=== PATIENT | male | born 1940 | race Caucasian/White ===

== ENCOUNTER → 2016-09-29 | Day surgery (SDC) | payer MEDICARE ==
[~2016-09-29] VITALS: Ht 172.7 cm; Wt 76.8 kg
[~2016-09-29] MED LIST: ACETAMINOPHEN 1000 MG/100 ML VIAL IV ONE; AMLO5TAB2 PO; ASPI81TA81 PO; CEPH-460 PO; CHLORHEXIDINE GLUCONATE 2 % 1 PACK (2 CLOTHS) TOPICAL PRN; CHRO200C PO; CINN500C12 PO; DO NOT ADM ANY ANTICOAGULANT DRUGS PRN; ENAL20TA PO; FAMOTIDINE 20 MG/2 ML VIAL ONE; INSULIN HUMAN REGULAR 1,000 UNITS/10 ML VIAL SQ PRN; LACTATED RINGER'S 1000 ML INJ 1,000 ML IV ONE; LACTATED RINGER'S 1000 ML IV PRN; METO25TA3 PO; METOPROLOL TARTRATE 25 MG TAB PO PRN; MIDAZOLAM HCL 2 MG/2 ML VIAL ONE; MULTTAB23 PO; OMEP20TA PO; ONDANSETRON HCL 4 MG/2 ML VIAL IV PUSH PRN; PERC5TAB12 PO; PHENYLEPH/NS 1000 MCG/10 ML SYR IV ONE; POVIDONE IODINE 5% (ANTISEPSIS KIT) 4 APPLICATIONS EACH NARE PRN; PROPOFOL 200 MG/20 ML AMP IV ONE; RESP: ALBUTEROL 2.5 MG/3 ML NEB (PRN) ONE; SODIUM CHLORID 0.9% 500 ML IV PRN; VENTAER INH; ceFAZolin 2 GM PREMIX 50 ML IV SCH; ePHEDrine/NS 25 MG/5 ML SYR IV ONE; fentaNYL CITRATE 250 MCG/5 ML AMP ONE; oxyCODONE/ACETAMINOPHEN 5 MG/325 MG TAB PO PRN
[2016-09-29 07:03] VITALS: BP 115/67; PULSE 65; RESP 20; TEMP 97.8; O2SAT 96
[2016-09-29 07:18] LABS: AUTOMATED NEUTROPHIL # 6.5 TH/MM3 (1.8-7.7); BASOPHIL # 0.1 TH/MM3 (0-0.2); BASOPHIL % 1.4 % (0.0-2.0); EOSINOPHIL # 0.4 TH/MM3 (0-0.4); EOSINOPHIL % 4.4 % (0.0-4.0); HEMATOCRIT 42.5 % (39.0-51.0); HEMO FLAGS DIFF FINAL; LYMPH % 19.2 % (9.0-44.0); LYMPHOCYTE # 1.8 TH/MM3 (1.0-4.8); MEAN CELL VOLUME 94.8 FL (80.0-100.0); MEAN CORPUSCULAR HEMOGLOBIN 32.6 PG (27.0-34.0); MEAN CORPUSCULAR HGB CONC 34.4 % (32.0-36.0); MONO % 6.4 % (0.0-8.0); NEUT % 68.6 % (16.0-70.0); PLATELET COUNT 210 TH/MM3 (150-450); RED BLOOD COUNT 4.49 MIL/MM3 (4.50-5.90); RED CELL DISTRIBUTION WIDTH 14.9 % (11.6-17.2); WHITE BLOOD COUNT 9.5 TH/MM3 (4.0-11.0)
--- NOTE | 2016-09-29 09:57 | PD.OP ---
Operative Report Date of Surgery: Sep 29, 2016 Preoperative Diagnosis: (1) Bladder mass Postoperative Diagnosis: (1) Bladder mass Procedure: Cystoscopy and transurethral resection of bladder mass measuring approximately 1 cm to the right trigone region. Anesthesia: General Surgeon: Bravo Rodriguez Merchandise Executive(s): None. Operation and Findings: Indication for procedure: Case of a pleasant 76-year-old gentleman with a history of bladder cancer status post transurethral resection of a lesion involving the right trigone region last year. The patient received mitomycin-C instillation at the time of transurethral resection. 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 Recent cystoscopy demonstrated a necrotic appearing small tumor mass involving the right trigone region measuring approximately 1 cm. Patient presents now to undergo transurethral resection of this small mass. Operative procedure in detail:. Patient was brought to the operating suite and placed supine on the cystoscopy table. He was then placed under general anesthesia. He was then repositioned in the dorsolithotomy position and prepped and draped in normal sterile fashion. After appropriate timeout was undertaken I proceeded with cystoscopic evaluation utilizing the rigid cystoscope with a 20 Algerian sheath and the 30 lens. The patient once again was noted to have a necrotic tumor mass involving the right trigone region just lateral to the right orifice measuring approximately 1 cm. The patient next underwent transurethral resection of this recurrent tumor mass. The tumor itself was pretty much devitalized. I did use the cup biopsy forceps and took the specimen of viable appearing tissue at the periphery of the mass lesion. Once the mass was resected the base was fulgurated with coagulation current. A 16 Algerian sensitivity Carrizales catheter was placed and connected to gravity drainage. Patient tolerated the procedure without complications and was transferred to PACU in satisfactory condition. Bravo Rodriguez MD Sep 29, 2016 09:57
[2016-09-29 11:30] VITALS: BP 133/65; PULSE 78; RESP 18; TEMP 97.4; O2SAT 92
--- NOTE | 2016-09-29 16:02 | EKG ---
Date Performed: 09/29/2016 Time Performed: 07:07:44 PTAGE: 76 years EK% ATRIAL PACING LEFT ANTERIOR FASCICULAR BLOCK RIGHT BUNDLE BRANCH BLOCK INFERIOR MYOCAR DIAL INFARCTION , OF INDETERMINATE AGE Atrial pacing is new from the prior tracing. ABNORMAL ECG PREVIOUS TRACING : 03/11/2005 15.20 DOCTOR: Guillermo Arias Interpretating Date/Time 09/29/2016 16:00:27
== END | disposition home or self-care (01) ==
LOC: HSDC 05:58
PROVIDERS: ATTEND Urology
DX: N32.89 Other specified disorders of bladder (principal); I10 Essential (primary) hypertension; E78.5 Hyperlipidemia, unspecified; E11.9 Type 2 diabetes mellitus without complications; K21.9 Gastro-esophageal reflux disease without esophagitis; I25.2 Old myocardial infarction; J44.9 Chronic obstructive pulmonary disease, unspecified; I25.10 Atherosclerotic heart disease of native coronary artery without angina pectoris; Z88.5 Allergy status to narcotic agent; Z88.2 Allergy status to sulfonamides; Z88.8 Allergy status to other drugs, medicaments and biological substances; Z79.82 Long term (current) use of aspirin; Z95.0 Presence of cardiac pacemaker; Z85.51 Personal history of malignant neoplasm of bladder; Z95.5 Presence of coronary angioplasty implant and graft
CPT/HCPCS: 52234; 85025; 88305; 93005; 94664; J0131; J0690; J2250; J2370; J3010; J7120; J7613; 88307

== ENCOUNTER 2016-11-15 16:37 | Inpatient (IN) | payer MEDICARE ==
[~2016-11-15] VITALS: Ht 172.7 cm; Wt 83.0 kg
[~2016-11-15 16:37] MED LIST changes: -ACETAMINOPHEN 1000 MG/100 ML VIAL IV ONE; -CEPH-460 PO; -CHLORHEXIDINE GLUCONATE 2 % 1 PACK (2 CLOTHS) TOPICAL PRN; -DO NOT ADM ANY ANTICOAGULANT DRUGS PRN; -FAMOTIDINE 20 MG/2 ML VIAL ONE; -INSULIN HUMAN REGULAR 1,000 UNITS/10 ML VIAL SQ PRN; -LACTATED RINGER'S 1000 ML INJ 1,000 ML IV ONE; -LACTATED RINGER'S 1000 ML IV PRN; -METOPROLOL TARTRATE 25 MG TAB PO PRN; -MIDAZOLAM HCL 2 MG/2 ML VIAL ONE; -ONDANSETRON HCL 4 MG/2 ML VIAL IV PUSH PRN; -PHENYLEPH/NS 1000 MCG/10 ML SYR IV ONE; -POVIDONE IODINE 5% (ANTISEPSIS KIT) 4 APPLICATIONS EACH NARE PRN; -PROPOFOL 200 MG/20 ML AMP IV ONE; -RESP: ALBUTEROL 2.5 MG/3 ML NEB (PRN) ONE; -SODIUM CHLORID 0.9% 500 ML IV PRN; -ceFAZolin 2 GM PREMIX 50 ML IV SCH; -ePHEDrine/NS 25 MG/5 ML SYR IV ONE; -fentaNYL CITRATE 250 MCG/5 ML AMP ONE; -oxyCODONE/ACETAMINOPHEN 5 MG/325 MG TAB PO PRN
--- NOTE | 2016-11-15 16:58 | PD ---
HPI Chief Complaint: fall Time Seen by Provider: 16:54 Travel History International Travel<30 days: No Contact w/Intl Traveler<30days: No History of Present Illness HPI 76-year-old male presents to the emergency department for evaluation after he tripped and fell. Patient arrived via EMS. He states that he tripped over the care of his was sitting in. He twisted his right foot and landed on his left hip. He complains of left groin and left lateral hip pain. He did hit his head, but denies LOC. He denies any neck pain or back pain. No chest pain or abdominal pain. No nausea, vomiting, diarrhea. He is on a baby aspirin daily, but is not on any other anticoagulants. He has no bleeding disorders. Patient denies pain other than his left hip and groin. PFSH Past Medical History Blood Disorders: No Cancer: Yes (BLADDER) Cardiovascular Problems: Yes (CARDIAC STENTS WITH PACEMAKER ([employer])) High Cholesterol: Yes Chemotherapy: No Diabetes: No Endocrine: No Genitourinary: Yes (BLADDER CA) Hepatitis: No Hiatal Hernia: No Immune Disorder: No Musculoskeletal: No Neurologic: Yes (ZHAO'S PALSY, RT SIDE AFFECTED) Psychiatric: No Reproductive: No Respiratory: Yes (COPD) Radiation Therapy: No Thyroid Disease: No Past Surgical History Abdominal Surgery: No AICD: No Body Medical Devices: CARDIAC STENTS Cardiac Surgery: Yes (CABG, PACEMAKER) Ear Surgery: No Endocrine Surgery: No Eye Surgery: Yes (DETACHED RETINA) Genitourinary Surgery: No Joint Replacement: No Oral Surgery: No Pacemaker: Yes Thoracic Surgery: No Social History Alcohol Use: No Tobacco Use: No Substance Use: No Allergies-Medications (Allergen,Severity, Reaction): Coded Allergies: Morphine (Verified Allergy, Severe, HALLUCINATION, 10/17/16) Uncoded Allergies: STEROIDS (Allergy, Severe, HEADACHES, NAUSEA, 09/29/16) Reported Meds & Prescriptions Reported Meds & Active Scripts Active Percocet (Oxycodone-Acetaminophen) 5-325 mg Tab 1-2 Tab PO Q6H PRN Reported Hm Cinnamon (Cinnamon) 500 Mg Cap 300 Mg PO DAILY Chromium Picolinate 200 Mcg Cap 200 Mg PO DAILY Amlodipine (Amlodipine Besylate) 5 Mg Tab 5 Mg PO DAILY Aspir-81 (Aspirin) 81 Mg Tabdr 81 Mg PO DAILY Ventolin Hfa 18 GM Inh (Albuterol Sulfate) 90 Mcg/Act Aer 2 Puff INH Q4-6H PRN Multi For Him 50+ (Multiple Vitamins W/ Minerals) 1 Tab Tab 0.5 Tab PO EVERY OTHER DAY Metoprolol Tartrate 25 Mg Tab 25 Mg PO DAILY Omeprazole 20 Mg Tab 20 Mg PO DAILY Enalapril (Enalapril Maleate) 20 Mg Tab 20 Mg PO DAILY Review of Systems Except as stated in HPI: all other systems reviewed are Neg Physical Exam Narrative GENERAL: Well-nourished, well-developed elderly male patient, afebrile. SKIN: Focused skin assessment warm/dry. No lacerations or abrasions. HEAD: Normocephalic. Atraumatic. EYES: No scleral icterus. No injection or drainage. NECK: Supple, trachea midline. No JVD or lymphadenopathy. CARDIOVASCULAR: Regular rate and rhythm without murmurs, gallops, or rubs. Bilateral radial and pedal pulses are 2+. RESPIRATORY: Breath sounds equal bilaterally. No accessory muscle use. Lungs sounds are clear to auscultation. GASTROINTESTINAL: Abdomen soft, non-tender, nondistended. MUSCULOSKELETAL: No cyanosis, or edema. Patient has tenderness over left groin and left lateral hip. He can flex and extend left hip, but with pain. He has full sensation to the distal left lower extremity. BACK: Nontender without obvious deformity. No CVA tenderness. No midline spinal tenderness. Data Data Last Documented VS Vital Signs Date Time Temp Pulse Resp B/P Pulse Ox O2 Delivery O2 Flow Rate FiO2 11/15/16 17:38 99 11/15/16 17:36 98.1 70 18 116/[address] Brain W/O Iv Contrast(Rout) (11/15/16 ) Hip, Uni(Ap&Lat) W Ap Pelvis (11/15/16 ) Acetamin-Hydrocod 325-5 Mg ([place] 5-325 (11/15/16 17:15) Femur (Ap & Lat/2vws) (11/15/16 ) Ct Hip W/O Contrast (11/15/16 ) Acetamin-Hydrocod 325-5 Mg ([place] 5-325 (11/15/16 19:45) Iv Access Insert/Monitor (11/15/16 19:48) Complete Blood Count With Diff (11/15/16 19:48) Basic Metabolic Panel (Bmp) (11/15/16 19:48) [facility] Medical Decision Making Medical Screen Exam Complete: Yes Emergency Medical Condition: Yes Medical Record Reviewed: Yes Interpretation(s) x-ray left femur - CONCLUSION: Left acetabular fracture. X-ray left hip with pelvis - CONCLUSION: Mildly displaced fracture left acetabulum. CT brain - CONCLUSION: No acute intracranial disease. Differential Diagnosis Contusion versus sprain versus strain versus fracture versus dislocation Narrative Course 76-year-old male presents to the emergency department for evaluation of left hip and groin pain after a trip and fall. CT of the brain is ordered and pending. X-ray left hip with pelvis and x-ray left femur ordered and pending. Patient effort states he does not want any pain medication, but then agrees to taking a Lortab for pain. Patient was apparently unable to walk after fall at home. X-ray of the left hip with pelvis shows a mildly displaced fracture left acetabulum. X-ray of the left femur shows left acetabular fracture. CT of the brain shows no acute intracranial disease. Dr. Pulliam is paged. [phone] - I spoke with JOSE Morris, who would like CT of the hip done. This is ordered and shows minimally displaced fractures of the inferior pubic ramus on the left and at the junction of the superior pubic ramus with anterior acetabulum. Chandler Robins returned repeat page and states patient can be weight bearing as tolerated. Patient is unable to ambulate at this time. He agrees patient should be admitted for pain control, rehab. [facility] is paged for admission. Consult is placed for Dr. Pulliam. Dr. Zheng accepted admission. Diagnosis Primary Impression: Left acetabular fracture Qualified Code: S32.402A - Closed nondisplaced fracture of left acetabulum, unspecified portion of acetabulum, initial encounter Admitting Information Admitting Physician Requests: Observation Daniela Balderas Nov 15, 2016 16:58
[2016-11-15] MEDS ORDERED: ACETAMINOPHEN/HYDROcodone 325 MG/5 MG TAB PO ONE ×2 (17:15→19:45)
--- NOTE | 2016-11-15 17:22 | RADRPT ---
EXAM DATE/TIME: 11/15/2016 17:10 [facility] COMPARISON: No previous studies available for comparison. INDICATIONS : Trauma, fall today. RADIATION DOSE: 34.65 CTDIvol (mGy) MEDICAL HISTORY : Hypertension. Cardiovascular disease [place] palsy, bladder cancer SURGICAL HISTORY : CABG cervical spine surgery ENCOUNTER: Initial ACUITY: 1 day PAIN SCALE: 4/10 LOCATION: Bilateral head TECHNIQUE: Multiple contiguous axial images were obtained of the head. Using automated exposure control and adj ustment of the mA and/or kV according to patient size, radiation dose was kept as low as reasonably a chievable to obtain optimal diagnostic quality images. DICOM format image data is available electro nically for review and comparison. FINDINGS: CEREBRUM: The ventricles are normal for age. No evidence of midline shift, mass lesion, hemorrhage or acute in farction. No extra-axial fluid collections are seen. POSTERIOR FOSSA: The cerebellum and brainstem are intact. The 4th ventricle is midline. The cerebellopontine angle i s unremarkable. EXTRACRANIAL: The visualized portion of the orbits is intact. SKULL: The calvaria is intact. No evidence of skull fracture. CONCLUSION: No acute intracranial disease. Daniel De La Cruz MD on November 15, 2016 at 17:19 Board Certified Radiologist. This report was verified electronically.
[2016-11-15 17:36] VITALS: BP 116/64; PULSE 70; RESP 18; TEMP 98.1; O2SAT 98
--- NOTE | 2016-11-15 17:44 | RADRPT ---
EXAM DATE/TIME: 11/15/2016 17:17 [facility] COMPARISON: No previous studies available for comparison. INDICATIONS : Left hip pain. Fall MEDICAL HISTORY : None. SURGICAL HISTORY : None. ENCOUNTER: Initial ACUITY: 1 day PAIN SCORE: 8/10 LOCATION: Left HIp FINDINGS: Examination of the left hip was performed with AP Pelvis. Left hip appears intact. There is a mildly displaced fracture through the left acetabulum intact. CONCLUSION: Mildly displaced fracture left acetabulum. Daniel De La Cruz MD on November 15, 2016 at 17:41 Board Certified Radiologist. This report was verified electronically.
--- NOTE | 2016-11-15 18:17 | RADRPT ---
EXAM DATE/TIME: 11/15/2016 17:54 [facility] COMPARISON: No previous studies available for comparison. INDICATIONS : Left femur pain. Fall. MEDICAL HISTORY : None. SURGICAL HISTORY : None. ENCOUNTER: Initial ACUITY: 1 day PAIN SCORE: 8/10 LOCATION: Left Femur FINDINGS: Two view examination of the left femur demonstrates no evidence of fracture or dislocation. There is fracture left acetabulum. Left hip is intact. Bony mineralization is normal. The soft tissue structu res are intact. CONCLUSION: Left acetabular fracture. Daniel De La Cruz MD on November 15, 2016 at 18:15 Board Certified Radiologist. This report was verified electronically.
--- NOTE | 2016-11-15 19:05 | RADRPT ---
EXAM DATE/TIME: 11/15/2016 18:41 [facility] COMPARISON: FEMUR LEFT (AP & LAT/2VWS), November 15, 2016, 17:54. HIP LEFT (AP&LAT 2/3VWS) W AP PELVIS, November 15 7, 17:17. INDICATIONS : Left hip pain; possible fracture. RADIATION DOSE: 33.5 CTDIvol (mGy) MEDICAL HISTORY : Carcinoma, bladder. Cardiovascular disease SURGICAL HISTORY : transurethral resection ENCOUNTER: Initial ACUITY: 1 day PAIN SCALE: 7/10 LOCATION: Left hip TECHNIQUE: Volumetric scanning of the hip was performed. Using automated exposure control and adjustment of the mA and/or kV according to patient size, radiation dose was kept as low as reasonably achievable to o btain optimal diagnostic quality images. DICOM format image data is available electronically for rev iew and comparison. FINDINGS: BONES: Left hip is intact. Mild degenerative changes. Fracture through the inferior pubic ramus on the left with minimal displacement. There is minimal displaced fracture at the junction of the superior pubic ramus and acetabulum anteriorly. JOINTS: No evidence of joint narrowing or effusion. SOFT TISSUES: Muscles, tendons and neurovascular structures are grossly unremarkable. No evidence of mass, organize d fluid collection, or foreign body. CONCLUSION: 1. Minimally displaced fractures of the inferior pubic ramus on the left and at the junction of the s uperior pubic ramus with anterior acetabulum. Daniel De La Cruz MD on November 15, 2016 at 19:01 Board Certified Radiologist. This report was verified electronically.
[2016-11-15 20:23] VITALS: BP 118/64; PULSE 72; RESP 16; O2SAT 94
[2016-11-15 20:48] LABS: AUTOMATED NEUTROPHIL # 13.2 TH/MM3 (1.8-7.7); BASOPHIL # 0.2 TH/MM3 (0-0.2); BASOPHIL % 1.3 % (0.0-2.0); EOSINOPHIL # 0.2 TH/MM3 (0-0.4); EOSINOPHIL % 1.1 % (0.0-4.0); HEMO FLAGS DIFF FINAL; LYMPHOCYTE # 1.6 TH/MM3 (1.0-4.8); MEAN CELL VOLUME 95.3 FL (80.0-100.0); MEAN CORPUSCULAR HEMOGLOBIN 31.7 PG (27.0-34.0); MEAN CORPUSCULAR HGB CONC 33.3 % (32.0-36.0); MONO % 6.3 % (0.0-8.0); NEUT % 81.3 % (16.0-70.0); PLATELET COUNT 212 TH/MM3 (150-450); RED CELL DISTRIBUTION WIDTH 14.1 % (11.6-17.2); WHITE BLOOD COUNT 16.3 TH/MM3 (4.0-11.0)
[2016-11-15 21:07] LABS: BICARBONATE 24.7 MEQ/L (21.0-32.0); POTASSIUM 3.9 MEQ/L (3.5-5.1)
[2016-11-15] MEDS ORDERED: ALBUTEROL SULFATE 90 MCG/ACT HFA 8 GM INHALER INH PRN (21:30)
[2016-11-15 21:56] VITALS: BP_SYST 113; BP_SYST 144; BP_DIAS 51; BP_DIAS 66; PULSE 71; PULSE 78; RESP 19; TEMP 96.7; O2SAT 92
[2016-11-15] MEDS: HYDROmorphone HCL PF 1 MG/ML VIAL IV PUSH PRN (23:27)
[2016-11-16] VITALS (9 sets, daily range): BP systolic 106–160; BP diastolic 47–69; PULSE 58–75; RESP 17–18; TEMP 96.2–98.2; O2SAT 68–96
[2016-11-16] MEDS: HYDROmorphone HCL PF 1 MG/ML VIAL IV PUSH PRN ×2 (04:16→08:56)
[2016-11-16 06:41] LABS: HEMATOCRIT 37.9 % (39.0-51.0); MEAN CELL VOLUME 95.6 FL (80.0-100.0); MEAN CORPUSCULAR HEMOGLOBIN 32.3 PG (27.0-34.0); MEAN CORPUSCULAR HGB CONC 33.8 % (32.0-36.0); PLATELET COUNT 202 TH/MM3 (150-450); RED BLOOD COUNT 3.96 MIL/MM3 (4.50-5.90); REVIEW FLAG FINAL; WHITE BLOOD COUNT 11.2 TH/MM3 (4.0-11.0)
[2016-11-16] MEDS ORDERED: PERC5TAB12 PO (06:44)
[2016-11-16] MEDS ORDERED: WALKER/ADULT/FO1 MIS (06:44)
--- NOTE | 2016-11-16 08:24 | MB ---
cc: NDIAYEALONSO DATE OF CONSULTATION: 11/15/2016 REASON FOR CONSULTATION Left pubic rami fractures. HISTORY Ham is a 76-year-old male who tripped and fell. He was at home. His was sitting in a chair. He tripped over the chair and landed on his left side. He had immediate left-sided hip pain. He was in the emergency room where x-rays revealed a left pubic rami fracture. He is currently awake and alert, on the orthopedic floor. He denies any dizziness, syncope or loss of consciousness. Pain is worse with any movement or weightbearing. He denies any hip pain prior to this fall. PAST MEDICAL HISTORY ILLNESSES History of bladder cancer, coronary artery disease, Morris's palsy, and COPD. SURGERIES Cardiac stent placement, pacemaker placement, detached retina repair. ALLERGIES Morphine. MEDICATIONS Medications include: 1. Percocet. 2. Amlodipine. 3. Aspirin. 4. Ventolin. 5. Metoprolol. 6. Omeprazole 7. Enalapril. SOCIAL HISTORY The patient lives at home with his . He denies alcohol, tobacco or drug use. REVIEW OF SYSTEMS The patient denies headache, visual changes, neck pain, chest pain, shortness of breath, abdominal pain, nausea, vomiting, recent weight loss, numbness or tenderness of the extremities. He complains of left-sided hip pain. The pain is worse with movement. FAMILY HISTORY: Noncontributory. PHYSICAL EXAMINATION The patient is a well-developed, well-nourished 76-year-old male who is in no acute distress. He is awake and alert. He is alert and oriented x3. Vital signs: Temperature 96.7, pulse 60, respirations 18, blood pressure 121/59, O2 sat 92% on room air. Head: The patient is normocephalic. Pupils are equal. Neck: Soft, nontender. Trachea is midline. Abdomen: Soft, nontender, nondistended. Extremities: Examination of bilateral upper extremities shows no pain with shoulder, elbow or wrist motion. He has intact sensation in all fingers. He has good capillary refill. Skin is intact, strength is +5. Examination of bilateral lower extremities reveals no significant pain with gentle hip, knee or ankle motion. Skin is intact to both legs. Dorsalis pedis pulses palpable. Sensation is intact to both feet. Examination of his pelvis reveals significant tenderness to palpation of left pubic rami. He has mild discomfort with AP and lateral compression of his pelvis. X-RAYS X-rays and CT scan of the pelvis were reviewed. The patient has minimally displaced left pubic rami fractures. IMPRESSION 1. Osteoporosis 2. COPD 3. Left tibial rami fractures. PLAN Treatment options were discussed with the patient. At this point I would recommend nonoperative treatment. The patient may weightbear as tolerated. I explained to him that weightbearing will likely cause some pain but should not cause further damage to his pelvis. He may use a walker. The patient will likely take 6-8 weeks to resolve. All questions were answered. A mid-level provider in my office, nurse practitioner or PA, may see this patient on a follow-up basis and continue to implement the objective of this plan including: Starting or adjusting medications, injections of muscle, tendon, bursa or joints, cast application, orthotic or brace application, physical therapy, further radiographic studies including x-ray, MRI, CT, ultrasounds or bone scan, vascular studies, neurologic studies, or other specialist consultations, and proceeding with surgical management as appropriate. MD LUANN Scott/NANCY /6:53 AM /8:18 AM
[2016-11-16] MEDS ORDERED: RESP: ALBUTEROL 2.5 MG/IPRATROPIUM 0.5 MG NEB (PRN) NEB (08:45)
[2016-11-16] MEDS: METOPROLOL TARTRATE 25 MG TAB PO SCH (08:56)
[2016-11-16] MEDS: ENALAPRIL MALEATE 10 MG TAB PO SCH (08:56)
[2016-11-16] MEDS: ASPIRIN EC 81 MG TABEC PO SCH (08:56)
[2016-11-16] MEDS: PANTOPRAZOLE SOD 20 MG DELAYED RELEASE TAB PO SCH (08:56)
[2016-11-16] MEDS: SENNOSIDES 8.6 MG TAB PO SCH (09:00)
[2016-11-16] MEDS: REMOVE OLD PATCH T-DERMAL SCH (09:00)
[2016-11-16] MEDS: NICOTINE 7 MG/24 HR PATCH T-DERMAL SCH (09:00)
--- NOTE | 2016-11-16 09:06 | HHI.HP ---
[facility] Branden Healy MD Admission Diagnosis fracure of left acetabulum Diagnoses: (UrielAmericabrittani CLARK) Travel History International Travel<30 Days: No Contact w/Intl Traveler <30 Da: No Traveled to Known Affected Are: No (America Trevino) History of Present Illness This a pleasant 76-year-old male with significant past medical history coronary artery disease, COPD, hypertension, hyperlipidemia, pacemaker. Patient presented to the emergency room for evaluation of fall. Patient indicates that he tripped over a chair and fell, twisted right foot and landed on left hip. He did hit his head but did not lose any consciousness. Denies any neck pain or back pain. His called a nephew who attempted to get the patient to stand but he was not able to bear weight. Patient complaining a left groin and left lateral hip pain. In the emergency room, patient was evaluated. Imaging studies were completed that showed mildly displaced fracture of left acetabulum. Orthopedic was contacted and CT was ordered. CT show minimally displaced fractures of the inferior pubic ramus on the left and at the junction of the superior pubic ramus with anterior acetabulum. Last Impressions Lower Extremity CT 11/15/16 0000 Signed Impressions: Service Date/Time: Tuesday, November 15, 2016 18:41 - CONCLUSION: 1. Minimally displaced fractures of the inferior pubic ramus on the left and at the junction of the superior pubic ramus with anterior acetabulum. Daniel De La Cruz MD Hip and Pelvis X-Ray 11/15/16 0000 Signed Impressions: Service Date/Time: Tuesday, November 15, 2016 17:17 - CONCLUSION: Mildly displaced fracture left acetabulum. Daniel De La Cruz MD Head CT 11/15/16 0000 Signed Impressions: Service Date/Time: Tuesday, November 15, 2016 17:10 - CONCLUSION: No acute intracranial disease. Daniel De La Cruz MD Femur X-Ray 11/15/16 0000 Signed Impressions: Service Date/Time: Tuesday, November 15, 2016 17:54 - CONCLUSION: Left acetabular fracture. MD Dr. Heraclio Rojas has evaluated patient, at this time non-surgical management is recommended. Physical therapy has been ordered. Patient is complaining of pain to both groins, has some mild numbness tingling to the left leg but otherwise has intact sensation at this time. Able to dorsiflex both feet. He is anxious to go home, not looking forward to going to a rehabilitation if needed. Patient does have history of COPD, he's not oxygen dependent. He continues to smoke. Denies any recent chest pain, chronically short of breath, no fever, no chills. His hospital director is . Patient is admitted for further evaluation and treatment (America Trevino) Review of Systems Constitutional: COMPLAINS OF: Chills, DENIES: Diaphoretic episodes, Fatigue, Fever, Weight gain, Weight loss, Dizziness, Change in appetite, Night Sweats Endocrine: DENIES: Heat/cold intolerance, Polydipsia, Polyuria, Polyphagia Eyes: DENIES: Blurred vision, Diplopia, Eye inflammation, Eye pain, Vision loss , Photosensitivity, Double Vision Ears, nose, mouth, throat: DENIES: Tinnitus, Hearing loss, Vertigo, Nasal discharge, Oral lesions, Throat pain, Hoarseness, Ear Pain, Running Nose, Epistaxis, Sinus Pain, Toothache, Odynophagia Respiratory: COMPLAINS OF: Cough, Wheezing, Sputum production, Shortness of breath, DENIES: Apneas, Snoring, Hemoptysis Cardiovascular: DENIES: Chest pain, Palpitations, Syncope, Dyspnea on Exertion , PND, Lower Extremity Edema, Orthopnea, Claudication Gastrointestinal: DENIES: Abdominal pain, Black stools, Bloody stools, Constipation, Diarrhea, Nausea, Vomiting, Difficulty Swallowing, Anorexia Genitourinary: DENIES: Sexual dysfunction, Urinary frequency, Urinary incontinence, Urgency, Hematuria, Dysuria, Nocturia, Penile Discharge, Testicular Pain, Testicular Swelling Musculoskeletal: COMPLAINS OF: Joint pain (bilat groin pain with palpation) Integumentary: DENIES: Abnormal pigmentation, Nail changes, Pruritus, Rash Hematologic/lymphatic: DENIES: Bruising, Lymphadenopathy Immunologic/allergic: DENIES: Eczema, Urticaria Neurologic: COMPLAINS OF: Paresthesias (SOME [place], NUMBNESS RIGHT LEG), DENIES: Abnormal gait, Headache, Localized weakness, Seizures, Speech Problems, Tremor, Poor Balance Psychiatric: DENIES: Anxiety, Confusion, Mood changes, Depression, Hallucinations, Agitation, Suicidal Ideation, Homicidal Ideation, Delusions ( America Trevino) Past Family Social History Past Medical History CAD HTN Hyperlipidemia Tobaccoism COPD, not oxygen dependent Bladder cancer Detached retina Morris's palsy Past Surgical History CABG Pacemaker insertion coronary artery stents Retina surgery Laminectomy Cystoscopy and transurethral resection of bladder mass measuring approximately 1 cm to the right trigone region 09/29/2016 Reported Medications Reported Meds & Active Scripts Active Percocet (Oxycodone-Acetaminophen) 5-325 mg Tab 1 Tab PO Q4H PRN Percocet (Oxycodone-Acetaminophen) 5-325 mg Tab 1-2 Tab PO Q6H PRN Reported Hm Cinnamon (Cinnamon) 500 Mg Cap 300 Mg PO DAILY Chromium Picolinate 200 Mcg Cap 200 Mg PO DAILY Amlodipine (Amlodipine Besylate) 5 Mg Tab 5 Mg PO DAILY Aspir-81 (Aspirin) 81 Mg Tabdr 81 Mg PO DAILY Ventolin Hfa 18 GM Inh (Albuterol Sulfate) 90 Mcg/Act Aer 2 Puff INH Q4-6H PRN Multi For Him 50+ (Multiple Vitamins W/ Minerals) 1 Tab Tab 0.5 Tab PO EVERY OTHER DAY Metoprolol Tartrate 25 Mg Tab 25 Mg PO DAILY Omeprazole 20 Mg Tab 20 Mg PO DAILY Enalapril (Enalapril Maleate) 20 Mg Tab 20 Mg PO DAILY (America Trevino) Allergies: Coded Allergies: Morphine (Verified Allergy, Severe, HALLUCINATION, 10/17/16) Uncoded Allergies: STEROIDS (Allergy, Severe, HEADACHES, NAUSEA, 09/29/16) Active Ordered Medications Inpatient Medications Acetaminophen/ Hydrocodone Bitart ([place] 5-325 Mg) 1 tab ONCE ONCE PO Last administered on 11/15/16t 19:45; Start 11/15/16 at 19:45; Stop 11/15/16 at 19:46 ; Status DC Albuterol Sulfate (Proair Hfa Inh) 2 puff Q6H PRN INH SHORTNESS OF BREATH; Start 11/15/16 at 21:30 Aspirin (Ecotrin Ec) 81 mg DAILY PO ; Start 11/16/16 at 09:00 Enalapril Maleate (Vasotec) 20 mg DAILY PO ; Start 11/16/16 at 09:00 Enoxaparin Sodium (Lovenox Inj) 40 mg Q24H SQ ; Start 11/16/16 at 08:45; Status UNV Hydromorphone HCl (Dilaudid Pf Inj) 0.5 mg Q4H PRN IV PUSH PAIN 5 TO 10 Last administered on 11/16/16t 04:16; Start 11/15/16 at 21:30 Magnesium Hydroxide (Milk Of Jose Holman) 30 ml Q6H PRN PO CONSTIPATION; Start 11/16/16 at 08:45; Status UNV Metoprolol Tartrate (Lopressor) 25 mg DAILY PO ; Start 11/16/16 at 09:00 Pantoprazole Sodium (Protonix) 20 mg DAILY PO ; Start 11/16/16 at 09:00 Sennosides (Senokot) 8.6 mg DAILY PO ; Start 11/16/16 at 09:00; Status UNV Family History Mother had history of diabetes, at age 50 from some type of musculoskeletal disorder Father at age 62 from metastatic melanoma Social History Patient is , lives at home with . Drinks a glass of wine every evening, no illegal drug use. Heavy smoker, smokes 1 pack a day since age 18 ( America Trevino) Physical Exam Vital Signs Vital Signs Date Time Temp Pulse Resp B/P Pulse Ox O2 Delivery O2 Flow Rate FiO2 11/16/16 03:06 96.7 60 18 121/59 92 11/16/16 00:51 97.8 71 18 113/51 92 11/15/16 21:56 96.7 78 19 144/66 92 11/15/16 20:23 72 16 118/64 94 Room Air 11/15/16 17:38 99 11/15/16 17:36 98.1 70 18 116/64 98 Physical Exam GENERAL: This is a well-nourished, well-developed patient, in no apparent distress. SKIN: No rashes, ecchymoses or lesions. Cool and dry. HEAD: Atraumatic. Normocephalic. No temporal or scalp tenderness. EYES: Pupils equal round and reactive. Extraocular motions intact. No scleral icterus. No injection or drainage. ENT: Nose without bleeding, purulent drainage or septal hematoma. Throat without erythema, tonsillar hypertrophy or exudate. Uvula midline. Airway patent. NECK: Trachea midline. No JVD or lymphadenopathy. Supple, nontender, no meningeal signs. CARDIOVASCULAR: Regular rate and rhythm without murmurs, gallops, or rubs. RESPIRATORY: Diminished, + cough, no sputum GASTROINTESTINAL: Abdomen soft, non-tender, nondistended. No hepato-splenomegaly , or palpable masses. No guarding. MUSCULOSKELETAL: able to flex and extend hip but painful, c/o pain both groins. Intact sensation to both feet. Pedal pulses 2+ bilat. No other joint abnormality NEUROLOGICAL: Awake and alert. Cranial nerves II through XII intact. Motor and sensory grossly within normal limits. Five out of 5 muscle strength in all muscle groups. Normal speech. Laboratory Laboratory Tests Test 11/15/16 11/16/16 20:15 05:12 White Blood Count 16.3 11.2 Red Blood Count 4.20 3.96 Hemoglobin 13.3 12.8 Hematocrit 40.0 37.9 Mean Corpuscular Volume 95.3 95.6 Mean Corpuscular Hemoglobin 31.7 32.3 Mean Corpuscular Hemoglobin 33.3 33.8 Concent Red Cell Distribution Width 14.1 14.0 Platelet Count 212 202 Mean Platelet Volume 7.9 8.5 Neutrophils (%) (Auto) 81.3 Lymphocytes (%) (Auto) 10.0 Monocytes (%) (Auto) 6.3 Eosinophils (%) (Auto) 1.1 Basophils (%) (Auto) 1.3 Neutrophils # (Auto) 13.2 Lymphocytes # (Auto) 1.6 Monocytes # (Auto) 1.0 Eosinophils # (Auto) 0.2 Basophils # (Auto) 0.2 CBC Comment DIFF FINAL Differential Comment Sodium Level 141 Potassium Level 3.9 Chloride Level 109 Carbon Dioxide Level 24.7 Anion Gap 7 Blood Urea Nitrogen 26 Creatinine 0.96 Estimat Glomerular Filtration 77 Rate Random Glucose 176 Calcium Level 8.7 (America Trevino [facility]) Result Diagram: 11/16/16 0512 11/15/162014 Assessment and Plan Problem List: (1) Fall (2) Left acetabular fracture (3) Closed fracture of left superior pubic ramus (4) HTN (hypertension) (5) Tobacco abuse (6) Hyperlipidemia (7) CAD (coronary artery disease) (8) COPD (chronic obstructive pulmonary disease) (9) Hyperglycemia (10) Leukocytosis Assessment and Plan Admit to Dr. Shah 76-year-old white male admitted after fall, found with minimally displaced fractures of the inferior pubic ramus on the left and at the junction of the superior pubic redness with anterior acetabulum. -Appreciate orthopedic input, nonsurgical management is recommended Physical therapy has been consulted for evaluation and to assist with mobility Patient will be put on Toradol as needed for pain management Antiemetics as needed Bowel regimen Case management consultation for discharge planning, home health care with physical therapy versus inpatient rehabilitation -OT evaluation Leukocytosis, etiology unclear. Recent fever, no evidence of infection Monitor CBC, monitor for fever Elevated blood glucose, etiology unclear. Patient not a diabetic We'll check hemoglobin A1c COPD, stable. Chronically short of breath with occasional wheezing Tobacco abuse, continues to smoke 1 pack a day since age 18 -DuoNeb's as needed for wheezing Tobacco abuse counseling Nicotine patch has been ordered Coronary artery disease, prior history of CABG History of coronary artery stents Pacemaker -Continue home medications Hypertension, blood pressure well controlled, 110s -Continue home medications Hyperlipidemia, stable Continue home medications Home medications reviewed, initiated as indicated SCDs and Lovenox 40 mg subcutaneous daily for DVT prophylaxis Case management consultation for discharge planning Plan of care has been discussed with the patient and his , attending and registered nurse. Further management of the patient will be dependent on the hospital course This patient was seen by myself and Dr. Dr. Shah, this H&P is written on her behalf (America Trevino) Assessment and Plan patient seen and examined agree with above assessment and plan discussed with patient and family at bedside discussed with America CLARK (Nayely Shah MD) Problem Qualifiers (1) Fall: Qualified Code: W19.XXXA - Fall, initial encounter (2) Left acetabular fracture: Qualified Code: S32.402A - Closed nondisplaced fracture of left acetabulum, unspecified portion of acetabulum, initial encounter (3) Closed fracture of left superior pubic ramus: Qualified Code: S32.512A - Closed fracture of left superior pubic ramus, initial encounter (4) HTN (hypertension): Qualified Code: I10 - Essential hypertension (5) Hyperlipidemia: Qualified Code: E78.5 - Hyperlipidemia, unspecified hyperlipidemia type (6) CAD (coronary artery disease): Qualified Code: I25.10 - Coronary artery disease involving [place] coronary artery of [place] heart without angina pectoris (7) COPD (chronic obstructive pulmonary disease): Qualified Code: J44.9 - Chronic obstructive pulmonary disease, unspecified COPD type (8) Leukocytosis: Qualified Code: D72.829 - Leukocytosis, unspecified type America Trevino Nov 16, 2016 09:05 Nayely Shah MD Nov 16, 2016 12:58
[2016-11-16] MEDS: ONDANSETRON HCL 4 MG/2 ML VIAL IV PUSH PRN ×2 (10:31→20:59)
[2016-11-16] MEDS: ENOXAPARIN SODIUM 40 MG/0.4 ML SYRINGE SQ SCH (13:32)
[2016-11-16] MEDS ORDERED: RESP: ALBUTEROL 2.5 MG/3 ML NEB (PRN) INH (20:15)
--- NOTE | 2016-11-16 20:27 | HHI.PR ---
Addendum to Inpatient Note Addendum Reason: Additional Documentation Additional Information 76 YO male with PHMx coronary artery disease, COPD, hypertension, hyperlipidemia , pacemaker who presented today with left acetabulum fracture from a fall at home that ortho will manage conservatively w/o surgery. Jean called at 2000 hours and Josselin Li and Stacia responded due to Mr Babin de-satting to 74% on RA. RT and nursing at bedside during response. Diffuse expiratory wheezing noted in both lung grullon is believed to be his baseline. Pt sitting up in bed in NAD and conversant w/o increased WOB. Attending notified and ordered duonebs, albuterol, and steroids; residents ordered CXR. O2 sats in 88- 91 range when residents departed w/pt on mask w/4L O2. Vitals @2049 hours show pt satting at 94% on mask @4L O2, FiO2 at 50%. - Duonebs - Methylprednisolone 60 mg - CXR - ABG - Albuterol inhaler [place] MD R1 Nov 16, 2016 20:27
--- NOTE | 2016-11-16 20:35 | RADRPT ---
EXAM DATE/TIME: 11/16/2016 20:26 [place] COMPARISON: No previous studies available for comparison. INDICATIONS : Short of breath MEDICAL HISTORY : Carcinoma, bladder. Cardiovascular disease, fracture left acetabulum. SURGICAL HISTORY : Pacemaker. CABG. transurethral resection ENCOUNTER: Initial ACUITY: 2 days PAIN SCORE: 0/10 LOCATION: chest FINDINGS: A single view of the chest demonstrates minimal bibasilar densities without evidence of mass, infiltr ate or effusion. Left sided pacemaker with intact leads. Previous CABG. The cardiomediastinal contour s are unremarkable. Osseous structures are intact. CONCLUSION: Bibasilar atelectasis. Daniel De La Cruz MD on November 16, 2016 at 20:33 Board Certified Radiologist. This report was verified electronically.
[2016-11-16 20:44] LABS: BLOOD GAS BASE EXCESS 0.9 mmol/L (-2-2); BLOOD GAS CARBOXYHEMOGLOBIN 2.2 % (0-4); BLOOD GAS HCO3 26 mmol/L (22-26); BLOOD GAS METHEMOGLOBIN 0.8 % (0-2); BLOOD GAS O2 HGB SATURATION 88 % (90-100); BLOOD GAS OXYGEN CONTENT 16.2 Vol % (12.0-20.0); BLOOD GAS PCO2 47 mmHg (38-42); BLOOD GAS PO2 63 mmHg (61-120); BLOOD GAS TOTAL HGB 13.1 G/DL (12.0-16.0); TEMP CORR TO 98.6
[2016-11-16 20:45] LABS: CRITICAL VALUE YES; DRAW SITE LT RADIAL; LITER FLOW 5 L/M; NUMBER OF ARTERIAL PUNCTURES 1; OXYGEN DEVICE NASAL CANNULA; STAT YES; ULNAR PULSE Y
[2016-11-16] MEDS: methylPREDNISolone SOD SUCC 125 MG/2 ML VIAL IVP SCH (20:50)
[2016-11-16] MEDS: KETOROLAC TROMETHAMINE 30 MG/ML (IVP) VIAL IV PUSH PRN (20:50)
[2016-11-16] MEDS: RESP: ALBUTEROL 2.5 MG/IPRATROPIUM 0.5 MG NEB (SCH) INH (22:00)
[2016-11-17] VITALS (8 sets, daily range): BP systolic 114–143; BP diastolic 57–81; PULSE 58–69; RESP 16–18; TEMP 95.3–96.7; O2SAT 91–97
[2016-11-17] MEDS: methylPREDNISolone SOD SUCC 125 MG/2 ML VIAL IVP SCH ×3 (03:19→22:32)
--- NOTE | 2016-11-17 07:00 | EKG ---
Date Performed: 11/16/2016 Time Performed: 20:49:13 PTAGE: 76 years EKG: Sinus rhythm WITH OCCASIONAL SUPRAVENTRICULAR PREMATURE COMPLEXES RIGHT BUNDLE BRANCH BLOCK INFERIOR MYOCARDIAL I NFARCTION , PROBABLY OLD ABNORMAL ECG PREVIOUS TRACING : 09/29/2016 07.07 Compared to previous tracing, atrial pacing is no longer ev ident. DOCTOR: Jordon Mayberry Interpretating Date/Time 11/17/2016 06:59:48
--- NOTE | 2016-11-17 07:07 | PD.ORT.PN ---
Subjective Subjective Remarks Pain controlled. Improving since yesterday Objective Vitals Vital Signs Date Time Temp Pulse Resp B/P Pulse Ox O2 Delivery O2 Flow Rate FiO2 11/17/16 04:50 96.3 58 18 114/57 97 11/17/16 02:16 93 Nasal Cannula 5.00 11/16/16 23:00 96.2 68 17 108/52 96 11/16/16 20:50 93 Venturi Mask 50 11/16/16 19:55 84 4.00 11/16/16 19:45 98.2 75 17 120/55 68 11/16/16 16:00 97.9 68 18 106/47 74 11/16/16 12:00 96.8 58 18 111/50 76 11/16/16 08:00 96.6 70 18 160/69 85 I/O 11/16/16 11/16/16 11/16/16 11/17/16 11/17/16 11/17/16 07:00 15:00 23:00 07:00 15:00 23:00 Intake Total 480 ml 290 ml Output Total 250 ml Balance 230 ml 290 ml Intake Oral 480 ml 290 ml Output Urine Total 250 ml # Voids 4 # Bowel Movements 0 0 Result Diagram: 11/16/16 0512 11/15/162014 Imaging Last 72 hours Impressions Chest X-Ray 11/16/16 0000 Signed Impressions: Service Date/Time: Wednesday, November 16, 2016 20:26 - CONCLUSION: Bibasilar atelectasis. Daniel De La Cruz MD Lower Extremity CT 11/15/16 0000 Signed Impressions: Service Date/Time: Tuesday, November 15, 2016 18:41 - CONCLUSION: 1. Minimally displaced fractures of the inferior pubic ramus on the left and at the junction of the superior pubic ramus with anterior acetabulum. Daniel De La Cruz MD Hip and Pelvis X-Ray 11/15/16 0000 Signed Impressions: Service Date/Time: Tuesday, November 15, 2016 17:17 - CONCLUSION: Mildly displaced fracture left acetabulum. Daniel De La Cruz MD Head CT 11/15/16 0000 Signed Impressions: Service Date/Time: Tuesday, November 15, 2016 17:10 - CONCLUSION: No acute intracranial disease. Daniel De La Cruz MD Femur X-Ray 11/15/16 0000 Signed Impressions: Service Date/Time: Tuesday, November 15, 2016 17:54 - CONCLUSION: Left acetabular fracture. Daniel De La Cruz MD Assessment & Plan Assessment and Plan Left inferior and superior rami fractures Nonoperative treatment. Weightbearing as tolerated left lower extremity. Physical therapy for walker training. Continued evaluation for home discharge versus rehabilitation. If discharge to home, will plan for tomorrow Follow-up x-rays in [address] Riec or Hemanth Buitrago Jr. Nov 17, 2016 07:07
[2016-11-17] MEDS: PANTOPRAZOLE SOD 20 MG DELAYED RELEASE TAB PO SCH (09:00)
[2016-11-17] MEDS: REMOVE OLD PATCH T-DERMAL SCH (09:00)
[2016-11-17] MEDS: NICOTINE 7 MG/24 HR PATCH T-DERMAL SCH (09:00)
[2016-11-17] MEDS: ENOXAPARIN SODIUM 40 MG/0.4 ML SYRINGE SQ SCH (09:42)
[2016-11-17] MEDS: ENALAPRIL MALEATE 10 MG TAB PO SCH (09:43)
[2016-11-17] MEDS: ASPIRIN EC 81 MG TABEC PO SCH (09:43)
[2016-11-17] MEDS: METOPROLOL TARTRATE 25 MG TAB PO SCH (09:43)
[2016-11-17] MEDS: amLODIPine BESYLATE 5 MG TAB PO SCH (09:43)
[2016-11-17] MEDS: SENNOSIDES 8.6 MG TAB PO SCH (09:43)
--- NOTE | 2016-11-17 11:58 | HHI.PR ---
Subjective Subjective Remarks DERRICK called last night desated to 78% started on steroids, ABGs, CXR done oxygen increased was noted with inc. WOB at this time, better mildly wheezing sees Dr. Healy as OP no cp was able to do better with PT today, pain better afebrile Review of Systems Constitutional Constitutional Remarks 12 point ros completed, negative except as noted above Vitals/Results Intake & Output 11/16/16 11/16/16 11/17/16 15:00 23:00 07:00 Intake Total 290 ml 0 ml Output Total 200 ml Balance 290 ml -200 ml Intake Oral 290 ml 0 ml Output Urine Total 200 ml # Voids 4 # Bowel Movements 0 0 Vital Signs Vital Signs Date Time Temp Pulse Resp B/P Pulse Ox O2 Delivery O2 Flow Rate FiO2 11/17/16 08:00 95.3 67 16 143/65 94 11/17/16 07:25 Nasal Cannula 4.00 11/17/16 04:50 96.3 58 18 114/57 97 11/17/16 02:16 93 Nasal Cannula 5.00 11/16/16 23:00 96.2 68 17 108/52 96 11/16/16 20:50 93 Venturi Mask 50 11/16/16 19:55 84 4.00 11/16/16 19:45 98.2 75 17 120/55 68 11/16/16 16:00 97.9 68 18 106/47 74 11/16/16 12:00 96.8 58 18 111/50 76 CBC/BMP: 11/16/16 0512 11/15/162014 Lab Results Laboratory Tests Test 11/16/16 20:20 Blood Gas Puncture Site LT RADIAL Blood Gas Patient Temperature 98.6 Blood Gas HCO3 26 mmol/L Blood Gas Base Excess 0.9 mmol/L Blood Gas Oxygen Saturation 88 % Arterial Blood pH 7.36 Arterial Blood Partial 47 mmHg Pressure CO2 Arterial Blood Partial 63 mmHg Pressure O2 Arterial Blood Oxygen Content 16.2 Vol % Arterial Blood 2.2 % Carboxyhemoglobin Arterial Blood Methemoglobin 0.8 % Blood Gas Hemoglobin 13.1 G/DL Oxygen Delivery Device NASAL CANNULA Blood Gas Liter Flow 5 L/M Physical Exam General General Appearance: Well Developed, Well Nourished, No Acute Distress, Comfortable Eyes Eye Exam: Pupils Equal Ears & Nose Ears & Nose Exam: Nasal Mucosa [place] Throat Throat Exam: Oral Mucosa [place] & Moist Neck Neck Exam: Neck Supple, Trachea Midline Pulmonary Resp Exam: Rhonchi Resp Remarks exp. wheezing Cardiology CV Exam: Regular Gastrointestinal/Abdomen GI Exam: Soft, Non-Tender, Bowel Sounds Present, Non-Distended Musculoskeletal MS Exam: Joints Intact MS Remarks left hip painful Integumentary Skin Exam: Warm, Dry Extremeties Extremities Exam: No Edema, Pedal Pulses Palpable Neurologic Neuro Exam: Alert, Awake, Oriented, Speech Clear, Moving All Extremities, No Focal Deficits Psychiatric Psych Exam: Appropriate Responses VTE Prophylaxis VTE Prophylaxis Meds: Lovenox Assessment/Plan Problem List: (1) Left acetabular fracture (2) Closed fracture of left superior pubic ramus (3) Fall (4) HTN (hypertension) (5) Tobacco abuse (6) Leukocytosis (7) Hyperlipidemia (8) Hyperglycemia (9) CAD (coronary artery disease) (10) COPD (chronic obstructive pulmonary disease) (11) Hypoxia Assessment/Plan 76-year-old white male admitted after fall, found with minimally displaced fractures of the inferior pubic ramus on the left and at the junction of the superior pubic redness with anterior acetabulum. -Appreciate orthopedic input, nonsurgical management is recommended Physical therapy daily Pain management Antiemetics as needed Bowel regimen Case management consultation for discharge planning, home health care with physical therapy versus inpatient rehabilitation. Needs inpatient status to qualify for SNF. Pt and requesting SNF. Pt. with inc. SOB and wheezing overnight, can't assist. -continue to work with PT, pain management Leukocytosis, etiology unclear. Recent fever, no evidence of infection Monitor CBC, monitor for fever -WBC trending down Elevated blood glucose, etiology unclear. Patient not a diabetic pending hemoglobin A1c COPD, with acute exacerbation last night. Found hypoxic, inc WOB. Derrick called Tobacco abuse, continues to smoke 1 pack a day since age 18 -DuoNeb's as needed for wheezing Tobacco abuse counseling Nicotine patch -On Solumedrol, dec. to 60 mg IV BID -Add Mucinex -continue with supplemental oxygen -may need walk test -pulm consult, pending -ABG reviewed, ? narcotics, hypercarbic Coronary artery disease, prior history of CABG History of coronary artery stents Pacemaker -Continue home medications Hypertension, blood pressure well controlled, 110s -Continue home medications Hyperlipidemia, stable Continue home medications SCDs and Lovenox 40 mg subcutaneous daily for DVT prophylaxis Case management consultation for discharge planning, SNF requested. Pending. Pt. now hypoxic, requiring IV Solumedrol, not stable for dc. Poss meets inpatient criteria, d/w CM D/W pt and D/W Dr. Shah D/W RN D/W CM This patient was seen by myself and Dr. Dr. Shah, this note is written on her behalf Problem Qualifiers (1) Left acetabular fracture: Qualified Code: S32.402A - Closed nondisplaced fracture of left acetabulum, unspecified portion of acetabulum, initial encounter (2) Closed fracture of left superior pubic ramus: Qualified Code: S32.512A - Closed fracture of left superior pubic ramus, initial encounter (3) Fall: Qualified Code: W19.XXXA - Fall, initial encounter (4) HTN (hypertension): Qualified Code: I10 - Essential hypertension (5) Leukocytosis: Qualified Code: D72.829 - Leukocytosis, unspecified type (6) Hyperlipidemia: Qualified Code: E78.5 - Hyperlipidemia, unspecified hyperlipidemia type (7) CAD (coronary artery disease): Qualified Code: I25.10 - Coronary artery disease involving [place] coronary artery of [place] heart without angina pectoris (8) COPD (chronic obstructive pulmonary disease): Qualified Code: J44.1 - Chronic obstructive pulmonary disease with acute exacerbation America Trevino Nov 17, 2016 11:58
[2016-11-17 12:11] LABS: BLOOD GAS BASE EXCESS -0.9 mmol/L (-2-2); BLOOD GAS CARBOXYHEMOGLOBIN 1.5 % (0-4); BLOOD GAS HCO3 24 mmol/L (22-26); BLOOD GAS METHEMOGLOBIN 0.8 % (0-2); BLOOD GAS O2 HGB SATURATION 92 % (90-100); BLOOD GAS OXYGEN CONTENT 16.8 Vol % (12.0-20.0); BLOOD GAS PCO2 49 mmHg (38-42); BLOOD GAS PO2 68 mmHg (61-120); BLOOD GAS TOTAL HGB 13.1 G/DL (12.0-16.0); CRITICAL VALUE NO; TEMP CORR TO 98.6
[2016-11-17 12:12] LABS: DRAW SITE RT RADIAL; LITER FLOW 4 L/M; NUMBER OF ARTERIAL PUNCTURES 1; OXYGEN DEVICE NASAL CANNULA; STAT YES; ULNAR PULSE PRESENT
[2016-11-17] MEDS: cefTRIAXone INJ 1,000 MG in SODIUM CHLORIDE 0.9% INJ 100 ML IV SCH (15:13)
[2016-11-17] MEDS: RESP: ALBUTEROL 2.5 MG/IPRATROPIUM 0.5 MG NEB (SCH) INH ×2 (16:17→21:30)
[2016-11-17 18:34] LABS: HEMOGLOBIN A1a 1.1 %; HEMOGLOBIN A1b 0.9 %; HEMOGLOBIN Ao 83.1 %; HEMOGLOBIN LA1C 3.2 %; HEMOGLOBIN P3 5.6 %
[2016-11-17] MEDS: guaiFENesin E.R. 600 MG TAB PO SCH (22:31)
[2016-11-18] VITALS (8 sets, daily range): BP systolic 116–154; BP diastolic 57–67; PULSE 58–73; RESP 17–19; TEMP 96.5–97.2; O2SAT 92–97
[2016-11-18] MEDS: RESP: ALBUTEROL 2.5 MG/IPRATROPIUM 0.5 MG NEB (SCH) INH ×4 (04:48→22:00)
--- NOTE | 2016-11-18 06:20 | MB ---
cc: SHAMIR THOMAS DATE OF CONSULTATION 11/17/[address] Shah REASON FOR CONSULTATION COPD management. HISTORY OF PRESENT ILLNESS Mr. Babin is a 76-year-old white male who has a longstanding history of COPD. He follows with Dr. Carr. He also has history of pacemaker placement, coronary artery disease status post CABG. He has a long history of smoking, continues to smoke one pack of cigarettes a day. He also has bipolar disorder. The patient says he was sitting in his porch, it started raining, he wanted to go inside and then he slipped and fell, started having pain in his left groin and hip, did not have any loss of consciousness. He was brought to the emergency room. He had a workup done - His chest x-ray shows basilar atelectasis. His x-ray of the pelvis shows mildly displaced fracture of the left acetabulum and x-ray of the femur again shows left vestibular fracture. CT scan of the head shows no acute intracranial process. His CBC showed WBC count of 11.2, hemoglobin 12.8, hematocrit 37.9, MCV 95, platelet count 202. Sodium 141, potassium 3.9, chloride 109, CO2 24, BUN 26, creatinine 0.96. His blood gas shows pH 7.32, pCO2 49, pO2 68, bicarb 24 on 4 liters nasal cannula. PAST MEDICAL HISTORY Significant for - 1. Coronary artery disease, status post CABG x 3 done about 6 years ago at [facility]. 2. History of pacemaker placement. 3. Hypertension. 4. Nicotine use. 5. Bipolar disorder. 6. Bladder cancer. 7. History of Morris's palsy. 8. History of retinal surgery. 9. History of C4 spinal surgery. He had a plate placed because of a bone spur. MEDICATION He is currently taking - 1. Solu-Medrol 60 mg q.12 hours. 2. Mucinex 600 mg twice a day. 3. Rocephin 1 gram. 4. Amlodipine 5 mg daily. 5. Albuterol/Atrovent nebulizer treatment. 6. Lovenox 40 mg a day. 7. Aspirin 81 mg a day. 8. Enalapril 20 mg a day. 9. Metoprolol 25 mg daily. 10. Protonix 20 mg a day. 11. Nicotine patch 7 mg. 12. Toradol 15 mg q.6 hours IV. 13. Dilaudid for pain. ALLERGIES MORPHINE. STEROIDS. SOCIAL HISTORY second time now for 6 years. He has a long history of smoking and continues to smoke one pack of cigarettes per day. No alcohol use. FAMILY HISTORY He has three children. REVIEW OF SYSTEMS Normally he is up, around and active. No headache or dizziness. No malignancy over the bladder cancer. No seizure, stroke or epilepsy. PHYSICAL EXAMINATION GENERAL: Elderly male, not in acute distress. VITAL SIGNS: Blood pressure 131/81, heart rate 66, respirations 16, temperature 96.7. HEENT EXAMINATION: Pupils are equal and reactive to light. Oral mucosa, nasal mucosa normal. NECK: JVP not raised. CHEST: He has faint rhonchi. CVS: S1 and S2 normal. ABDOMEN: Soft, nontender, nondistended. Bowel sounds are present. EXTREMITIES: No edema. FORMAL WAITER/WAITRESS: He is alert and oriented x 3. No focal deficit. IMPRESSION 1. COPD, mild exacerbation. 2. Nicotine use. 3. Atelectasis. 4. Left acetabular fracture. 5. Coronary artery disease post CABG. 6. Pacemaker placement. 7. Bipolar disorder. PLAN 1. I have discussed with the patient. We will continue aerosol treatment, IV Solu-Medrol and wean him off, supplement his oxygen and evaluate him for possible need for home oxygen therapy. 2. I have advised him strongly to quit smoking. 3. The patient is seen by Orthopedic and is being planned for nonoperative treatment. 4. Physical therapy is evaluating the patient. 5. Further treatment will depend on his course in the hospital. Thank you Dr. Shah for this consult. MD PRAVEEN Holder/SSB /5:25 PM /6:10 AM
[2016-11-18] MEDS: MAGNESIUM HYDROXIDE SUSP 30 ML CUP PO PRN (06:25)
[2016-11-18 07:20] LABS: AUTOMATED NEUTROPHIL # 19.3 TH/MM3 (1.8-7.7); BASOPHIL % 0.1 % (0.0-2.0); HEMATOCRIT 37.1 % (39.0-51.0); HEMO FLAGS DIFF FINAL; LYMPH % 3.3 % (9.0-44.0); LYMPHOCYTE # 0.7 TH/MM3 (1.0-4.8); MEAN CORPUSCULAR HEMOGLOBIN 32.2 PG (27.0-34.0); MEAN CORPUSCULAR HGB CONC 34.6 % (32.0-36.0); NEUT % 93.6 % (16.0-70.0); PLATELET COUNT 195 TH/MM3 (150-450); RED BLOOD COUNT 3.99 MIL/MM3 (4.50-5.90); RED CELL DISTRIBUTION WIDTH 13.9 % (11.6-17.2); WHITE BLOOD COUNT 20.7 TH/MM3 (4.0-11.0)
[2016-11-18 07:40] LABS: BICARBONATE 28.2 MEQ/L (21.0-32.0); POTASSIUM 4.4 MEQ/L (3.5-5.1)
[2016-11-18] MEDS: PANTOPRAZOLE SOD 20 MG DELAYED RELEASE TAB PO SCH (08:15)
[2016-11-18] MEDS: ENOXAPARIN SODIUM 40 MG/0.4 ML SYRINGE SQ SCH ×2 (08:15→11:15)
[2016-11-18] MEDS: ASPIRIN EC 81 MG TABEC PO SCH (08:16)
[2016-11-18] MEDS: SENNOSIDES 8.6 MG TAB PO SCH (08:16)
[2016-11-18] MEDS: guaiFENesin E.R. 600 MG TAB PO SCH (08:16)
[2016-11-18] MEDS: amLODIPine BESYLATE 5 MG TAB PO SCH (08:17)
[2016-11-18] MEDS: methylPREDNISolone SOD SUCC 125 MG/2 ML VIAL IVP SCH (08:17)
[2016-11-18] MEDS: REMOVE OLD PATCH T-DERMAL SCH (08:17)
[2016-11-18] MEDS: ENALAPRIL MALEATE 10 MG TAB PO SCH (08:17)
[2016-11-18] MEDS: NICOTINE 7 MG/24 HR PATCH T-DERMAL SCH (08:17)
[2016-11-18] MEDS: METOPROLOL TARTRATE 25 MG TAB PO SCH (08:17)
--- NOTE | 2016-11-18 13:26 | HHI.PR ---
Subjective Subjective Remarks In the bed Alert oriented Encouraged to continue to drink by mouth fluids DTs with some mild hyperglycemia and leukocytosis probable secondary to steroid use, (Sarah Santacruz) Review of Systems Constitutional Constitutional: Weakness Constitutional Remarks Generalized, 10 point ROS done positives noted (Sarah Santacruz) Musculoskeletal MS: Weakness, Stiffness MS Remarks Fall with recent fracture of left acetabulum (Sarah Santacruz) Neurologic Neurologic Remarks Chronic old right facial droop (Sarah Santacruz) Psychiatric Psychiatric: Normal Mood (Sarah Santacruz) Vitals/Results Intake & Output 11/17/16 11/17/16 11/18/16 15:00 23:00 07:00 Intake Total 600 ml 240 ml 480 ml Output Total 700 ml 500 ml 500 ml Balance -100 ml -260 ml -20 ml Intake Oral 600 ml 240 ml 480 ml Output Urine Total 700 ml 500 ml 500 ml # Voids 1 # Bowel Movements 0 0 0 Vital Signs Vital Signs Date Time Temp Pulse Resp B/P Pulse Ox O2 Delivery O2 Flow Rate FiO2 11/18/16 08:32 92 Nasal Cannula 11/18/16 08:30 93 Nasal Cannula 4.00 11/18/16 08:00 96.9 61 18 138/60 93 11/18/16 04:30 96.5 65 18 130/60 94 11/18/16 00:30 96.7 73 18 126/59 95 11/17/16 21:40 96.4 64 17 137/65 93 11/17/16 21:33 91 Nasal Cannula 11/17/16 16:26 96.7 66 16 131/81 93 11/17/16 16:20 94 Nasal Cannula 4.00 (Sarah Santacruz) CBC/BMP: 11/18/16 0632 11/18/16 0632 Lab Results Laboratory Tests Test 11/18/16 06:32 White Blood Count 20.7 TH/MM3 Red Blood Count 3.99 MIL/MM3 Hemoglobin 12.8 GM/DL Hematocrit 37.1 % Mean Corpuscular Volume 93.0 FL Mean Corpuscular Hemoglobin 32.2 PG Mean Corpuscular Hemoglobin 34.6 % Concent Red Cell Distribution Width 13.9 % Platelet Count 195 TH/MM3 Mean Platelet Volume 8.9 FL Neutrophils (%) (Auto) 93.6 % Lymphocytes (%) (Auto) 3.3 % Monocytes (%) (Auto) 3.0 % Eosinophils (%) (Auto) 0.0 % Basophils (%) (Auto) 0.1 % Neutrophils # (Auto) 19.3 TH/MM3 Lymphocytes # (Auto) 0.7 TH/MM3 Monocytes # (Auto) 0.6 TH/MM3 Eosinophils # (Auto) 0.0 TH/MM3 Basophils # (Auto) 0.0 TH/MM3 CBC Comment DIFF FINAL Differential Comment Sodium Level 137 MEQ/L Potassium Level 4.4 MEQ/L Chloride Level 103 MEQ/L Carbon Dioxide Level 28.2 MEQ/L Anion Gap 6 MEQ/L Blood Urea Nitrogen 24 MG/DL Creatinine 0.84 MG/DL Estimat Glomerular Filtration 89 ML/MIN Rate Random Glucose 213 MG/DL Calcium Level 9.4 MG/DL Microbiology Microbiology 11/18/16 Worm Identification, Received Pending (Sarah Santacruz PATHOLOGY TECHNOLOGIST) Physical Exam General General Appearance: Well Developed, Well Nourished, No Acute Distress, Comfortable (NoamSarah. PATHOLOGY TECHNOLOGIST) Eyes Eye Exam: Pupils Equal (Sarah Santacruz PATHOLOGY TECHNOLOGIST) Ears & Nose Ears & Nose Exam: Nasal Mucosa [place] (Sarah Santacruz. PATHOLOGY TECHNOLOGIST) Throat Throat Exam: Oral Mucosa [place] & Moist (Wayland,Susan M. PATHOLOGY TECHNOLOGIST) Neck Neck Exam: Neck Supple, Trachea Midline (Wayland,Susan M. PATHOLOGY TECHNOLOGIST) Pulmonary Resp Exam: Clear Bilaterally, Rhonchi (rhonchi resolved) (WaylandSarah M. PATHOLOGY TECHNOLOGIST ) Cardiology CV Exam: Regular (Noam,Susan M. PATHOLOGY TECHNOLOGIST) Gastrointestinal/Abdomen GI Exam: Soft, Non-Tender, Bowel Sounds Present, Non-Distended (Noam,Susan M. PATHOLOGY TECHNOLOGIST) Musculoskeletal MS Exam: Joints Intact (Noam,Susan M. PATHOLOGY TECHNOLOGIST) Integumentary Skin Exam: Warm, Dry (Noam,Susan M. PATHOLOGY TECHNOLOGIST) Extremeties Extremities Exam: No Edema, Pedal Pulses Palpable (WaylandSarah M. PATHOLOGY TECHNOLOGIST) Neurologic Neuro Exam: Alert, Awake, Oriented, Speech Clear, Moving All Extremities, No Focal Deficits (Sarah Santacruz) Psychiatric Psych Exam: Appropriate Responses (Sarah Santacruz) VTE Prophylaxis VTE Prophylaxis Meds: Lovenox (Sarah Santacruz) Assessment/Plan Problem List: (1) Left acetabular fracture (2) Closed fracture of left superior pubic ramus (3) Fall (4) HTN (hypertension) (5) Tobacco abuse (6) Leukocytosis (7) Hyperlipidemia (8) Hyperglycemia (9) CAD (coronary artery disease) (10) COPD (chronic obstructive pulmonary disease) (11) Hypoxia Assessment/Plan 76-year-old white male admitted after fall, found with minimally displaced fractures of the inferior pubic ramus on the left and at the junction of the superior pubic redness with anterior acetabulum. Patient was bitten by a tick, test are still pending, patient was at [facility] in [place]. -Appreciate orthopedic input, nonsurgical management, continue to monitor with physical therapy, pain management, as needed meds for bowel regimen nausea vomiting Patient taking very minimal pain meds but states increased pain for a brief period of time when up with rehabilitation Leukocytosis, Probable secondary to steroids Continue to monitor while in hospital Elevated blood glucose, probable secondary to steroid use COPD, with acute exacerbation last night. Hypoxic, but now resolved, currently using oxygen per nasal cannula at 4 L. Continues with tobacco use -DuoNeb's as needed for wheezing Nicotine patch , wean O2 and monitor for any acute shortness of breath Coronary artery disease, prior history of CABG History of coronary artery stents, no acute chest pain medical management Pacemaker SCDs and Lovenox 40 mg subcutaneous daily for DVT prophylaxis Case management working on rehabilitation SNF, planned for [facility], when able to be weaned off oxygen. Plan for tomorrow, check labs in a.m. Changed to inpatient status D/W pt D/W Dr. Shah, seen on her behalf (Sarah Santacruz) Assessment/Plan patient seen and examined agree with above assessment and plan on 4L NC wean oxygen as tolerated switch to po steroids leucocytosis sec to steroids monitor overnight anticipate discharge to rehab in am plan of care discussed with patient and at bedside plan of care discussed with Sarah CLARK (Nayely Shah MD) Problem Qualifiers (1) Left acetabular fracture: Qualified Code: S32.402A - Closed nondisplaced fracture of left acetabulum, unspecified portion of acetabulum, initial encounter (2) Closed fracture of left superior pubic ramus: Qualified Code: S32.512A - Closed fracture of left superior pubic ramus, initial encounter (3) Fall: Qualified Code: W19.XXXA - Fall, initial encounter (4) HTN (hypertension): Qualified Code: I10 - Essential hypertension (5) Leukocytosis: Qualified Code: D72.829 - Leukocytosis, unspecified type (6) Hyperlipidemia: Qualified Code: E78.5 - Hyperlipidemia, unspecified hyperlipidemia type (7) CAD (coronary artery disease): Qualified Code: I25.10 - Coronary artery disease involving [place] coronary artery of [place] heart without angina pectoris (8) COPD (chronic obstructive pulmonary disease): Qualified Code: J44.1 - Chronic obstructive pulmonary disease with acute exacerbation Sarah Santacruz Nov 18, 2016 13:26 Nayely Shah MD Nov 18, 2016 19:41
[2016-11-18] MEDS: cefTRIAXone INJ 1,000 MG in SODIUM CHLORIDE 0.9% INJ 100 ML IV SCH (16:40)
--- NOTE | 2016-11-18 19:30 | HHI.PR ---
Subjective Remarks 76 YOWM with COPD exac, Acetabular fracture, Bipolar Breathing betetr at BS Wheezing improved Objective Vital Signs Vital Signs Date Time Temp Pulse Resp B/P Pulse Ox O2 Delivery O2 Flow Rate FiO2 11/18/16 16:00 97.0 64 18 116/57 92 11/18/16 12:00 97.1 68 18 132/63 95 11/18/16 08:32 92 Nasal Cannula 11/18/16 08:30 93 Nasal Cannula 4.00 11/18/16 08:00 96.9 61 18 138/60 93 11/18/16 04:30 96.5 65 18 130/60 94 11/18/16 00:30 96.7 73 18 126/59 95 11/17/16 21:40 96.4 64 17 137/65 93 11/17/16 21:33 91 Nasal Cannula I/O 11/17/16 11/17/16 11/17/16 11/18/16 11/18/16 11/18/16 07:00 15:00 23:00 07:00 15:00 23:00 Intake Total 600 ml 240 ml 480 ml 800 ml Output Total 700 ml 500 ml 500 ml 300 ml Balance -100 ml -260 ml -20 ml 500 ml Intake Oral 600 ml 240 ml 480 ml 800 ml Output Urine Total 700 ml 500 ml 500 ml 300 ml # Voids 1 2 # Bowel Movements 0 0 0 0 Result Diagram: 11/18/16 0632 11/18/16 0632 Objective Remarks GENERAL: Elderly male ,NAD SKIN: Warm and dry. HEAD: Normocephalic. EYES: No scleral icterus. No injection or drainage. NECK: Supple, trachea midline. No JVD or lymphadenopathy. CARDIOVASCULAR: Regular rate and rhythm without murmurs, gallops, or rubs. RESPIRATORY: Breath sounds equal bilaterally. No accessory muscle use. GASTROINTESTINAL: Abdomen soft, non-tender, nondistended. MUSCULOSKELETAL: No cyanosis, or edema. BACK: Nontender without obvious deformity. No CVA tenderness. A/P Assessment and Plan COPD with exac, improved Nicotine use Acetabular fracture Bipolar disorder CAD,S/P CABG PLAN: PO Steroids Aerosol nebs Supplement 02 Will evaluate for need for home 02Dw pt and his . Juancarlos Jeronimo MD Nov 18, 2016 19:30
[2016-11-19] MEDS: guaiFENesin E.R. 600 MG TAB PO SCH ×2 (00:26→09:24)
[2016-11-19 03:30] VITALS: BP 132/63; PULSE 57; RESP 17; TEMP 97; O2SAT 96
[2016-11-19 05:30] VITALS: O2SAT 95
--- NOTE | 2016-11-19 06:54 | PD.ORT.PN ---
Subjective Subjective Remarks Pain controlled. Improving since yesterday Objective Vitals Vital Signs Date Time Temp Pulse Resp B/P Pulse Ox O2 Delivery O2 Flow Rate FiO2 11/19/16 05:30 95 Nasal Cannula 4.00 11/19/16 05:14 98 Nasal Cannula 4.00 11/19/16 03:30 97.0 57 17 132/63 96 11/18/16 23:05 97.2 58 18 146/65 95 11/18/16 20:15 97.0 65 17 128/64 96 11/18/16 20:00 96 4.00 11/18/16 16:00 97.0 64 18 116/57 92 11/18/16 12:00 97.1 68 18 132/63 95 11/18/16 08:32 92 Nasal Cannula 11/18/16 08:30 93 Nasal Cannula 4.00 11/18/16 08:00 96.9 61 18 138/60 93 I/O 11/18/16 11/18/16 11/18/16 11/19/16 11/19/16 11/19/16 07:00 15:00 23:00 07:00 15:00 23:00 Intake Total 480 ml 800 ml Output Total 500 ml 300 ml Balance -20 ml 500 ml Intake Oral 480 ml 800 ml Output Urine Total 500 ml 300 ml # Voids 2 # Bowel Movements 0 0 Result Diagram: 11/18/16 0632 11/18/16 0632 Imaging Last 72 hours Impressions Chest X-Ray 11/16/16 0000 Signed Impressions: Service Date/Time: Wednesday, November 16, 2016 20:26 - CONCLUSION: Bibasilar atelectasis. Daniel De La Cruz MD Lower Extremity CT 11/15/16 0000 Signed Impressions: Service Date/Time: Tuesday, November 15, 2016 18:41 - CONCLUSION: 1. Minimally displaced fractures of the inferior pubic ramus on the left and at the junction of the superior pubic ramus with anterior acetabulum. Daniel De La Cruz MD Hip and Pelvis X-Ray 11/15/16 0000 Signed Impressions: Service Date/Time: Tuesday, November 15, 2016 17:17 - CONCLUSION: Mildly displaced fracture left acetabulum. Daniel De La Cruz MD Head CT 11/15/16 0000 Signed Impressions: Service Date/Time: Tuesday, November 15, 2016 17:10 - CONCLUSION: No acute intracranial disease. Daniel De La Cruz MD Femur X-Ray 11/15/16 0000 Signed Impressions: Service Date/Time: Tuesday, November 15, 2016 17:54 - CONCLUSION: Left acetabular fracture. Daniel De La Cruz MD Objective Remarks Left lower extremity: Pain to palpation over rami. No pain with passive range of motion of hip. Distally intact sensation with good capillary refills. Strong dorsal flexion plantar flexion of foot Assessment & Plan Assessment and Plan Left inferior and superior rami fractures Nonoperative treatment. Weightbearing as tolerated left lower extremity. Physical therapy for walker training. Discharge to rehabilitation today when bed available from orthopedic standpoint Follow-up x-rays in [address] Rice or Hemanth Buitrago Jr. Nov 19, 2016 06:54
[2016-11-19 07:01] LABS: AUTOMATED NEUTROPHIL # 15.9 TH/MM3 (1.8-7.7); BASOPHIL % 0.1 % (0.0-2.0); EOSINOPHIL % 0.2 % (0.0-4.0); HEMATOCRIT 36.7 % (39.0-51.0); HEMO FLAGS DIFF FINAL; LYMPH % 7.8 % (9.0-44.0); LYMPHOCYTE # 1.4 TH/MM3 (1.0-4.8); MEAN CELL VOLUME 93.1 FL (80.0-100.0); MEAN CORPUSCULAR HEMOGLOBIN 32.5 PG (27.0-34.0); MEAN CORPUSCULAR HGB CONC 34.9 % (32.0-36.0); MONO % 6.3 % (0.0-8.0); NEUT % 85.6 % (16.0-70.0); PLATELET COUNT 213 TH/MM3 (150-450); RED BLOOD COUNT 3.94 MIL/MM3 (4.50-5.90); RED CELL DISTRIBUTION WIDTH 14.2 % (11.6-17.2); WHITE BLOOD COUNT 18.6 TH/MM3 (4.0-11.0)
[2016-11-19 07:20] LABS: BICARBONATE 31.5 MEQ/L (21.0-32.0); POTASSIUM 4.1 MEQ/L (3.5-5.1)
[2016-11-19 08:00] VITALS: BP 135/69; PULSE 68; RESP 17; TEMP 97.5; O2SAT 94
[2016-11-19] MEDS: REMOVE OLD PATCH T-DERMAL SCH (09:00)
[2016-11-19] MEDS: NICOTINE 7 MG/24 HR PATCH T-DERMAL SCH (09:00)
[2016-11-19] MEDS: SENNOSIDES 8.6 MG TAB PO SCH (09:00)
[2016-11-19] MEDS ORDERED: predniSONE 20 MG TAB PO SCH (09:00)
[2016-11-19] MEDS: METOPROLOL TARTRATE 25 MG TAB PO SCH (09:24)
[2016-11-19] MEDS: PANTOPRAZOLE SOD 20 MG DELAYED RELEASE TAB PO SCH (09:24)
[2016-11-19] MEDS: ASPIRIN EC 81 MG TABEC PO SCH (09:25)
[2016-11-19] MEDS: amLODIPine BESYLATE 5 MG TAB PO SCH (09:25)
[2016-11-19] MEDS: ENALAPRIL MALEATE 10 MG TAB PO SCH (09:25)
[2016-11-19] MEDS: MAGNESIUM HYDROXIDE SUSP 30 ML CUP PO PRN (09:31)
[2016-11-19] MEDS: KETOROLAC TROMETHAMINE 30 MG/ML (IVP) VIAL IV PUSH PRN (09:32)
[2016-11-19] MEDS: ENOXAPARIN SODIUM 40 MG/0.4 ML SYRINGE SQ SCH (09:32)
[2016-11-19] MEDS: RESP: ALBUTEROL 2.5 MG/IPRATROPIUM 0.5 MG NEB (SCH) INH (09:57)
[2016-11-19 10:00] VITALS: O2SAT 92
[2016-11-19] MEDS ORDERED: BISACODYL 10 MG SUPP RECTAL ONE (10:30)
--- NOTE | 2016-11-19 10:30 | HHI.PR ---
Subjective Subjective Remarks Sitting up in chair Taking duo neb treatment Decreased O2 to 2 L nasal cannula Monitor sats to be 92 or greater Walk test today Anxious, wanting to discharge (Sarah Santacruz) Review of Systems Constitutional Constitutional: Weakness Constitutional Remarks Generalized, 10 point ROS done positives noted (Sarah Santacruz) Musculoskeletal MS: Weakness, Stiffness MS Remarks Fall with recent fracture of left acetabulum (Sarah Santacruz) Neurologic Neurologic Remarks Chronic old right facial droop (Sarah Santacruz) Psychiatric Psychiatric: Normal Mood, Anxiety (Sarah Santacruz) Vitals/Results Intake & Output 11/18/16 11/18/16 11/19/16 15:00 23:00 07:00 Intake Total 1040 ml Output Total 700 ml Balance 340 ml Intake Oral 1040 ml Output Urine Total 700 ml # Voids 2 # Bowel Movements 0 Vital Signs Vital Signs Date Time Temp Pulse Resp B/P Pulse Ox O2 Delivery O2 Flow Rate FiO2 11/19/16 10:00 92 Nasal Cannula 4.00 11/19/16 09:42 94 Nasal Cannula 4.00 11/19/16 05:30 95 Nasal Cannula 4.00 11/19/16 05:14 98 Nasal Cannula 4.00 11/19/16 03:30 97.0 57 17 132/63 96 11/18/16 23:05 97.2 58 18 146/65 95 11/18/16 20:15 97.0 65 17 128/64 96 11/18/16 20:00 96 4.00 11/18/16 16:00 97.0 64 18 116/57 92 11/18/16 12:00 97.1 68 18 132/63 95 (Sarah Santacruz) CBC/BMP: 11/19/16 0619 11/19/16 0619 Lab Results Laboratory Tests Test 11/19/16 06:19 White Blood Count 18.6 TH/MM3 Red Blood Count 3.94 MIL/MM3 Hemoglobin 12.8 GM/DL Hematocrit 36.7 % Mean Corpuscular Volume 93.1 FL Mean Corpuscular Hemoglobin 32.5 PG Mean Corpuscular Hemoglobin 34.9 % Concent Red Cell Distribution Width 14.2 % Platelet Count 213 TH/MM3 Mean Platelet Volume 8.8 FL Neutrophils (%) (Auto) 85.6 % Lymphocytes (%) (Auto) 7.8 % Monocytes (%) (Auto) 6.3 % Eosinophils (%) (Auto) 0.2 % Basophils (%) (Auto) 0.1 % Neutrophils # (Auto) 15.9 TH/MM3 Lymphocytes # (Auto) 1.4 TH/MM3 Monocytes # (Auto) 1.2 TH/MM3 Eosinophils # (Auto) 0.0 TH/MM3 Basophils # (Auto) 0.0 TH/MM3 CBC Comment DIFF FINAL Differential Comment Sodium Level 139 MEQ/L Potassium Level 4.1 MEQ/L Chloride Level 102 MEQ/L Carbon Dioxide Level 31.5 MEQ/L Anion Gap 6 MEQ/L Blood Urea Nitrogen 25 MG/DL Creatinine 0.70 MG/DL Estimat Glomerular Filtration 110 ML/MIN Rate Random Glucose 133 MG/DL Calcium Level 9.2 MG/DL (StrykerLenoreSarah M. OUTREACH REPRESENTATIVE) Physical Exam General General Appearance: Well Developed, Well Nourished, No Acute Distress, Comfortable (StrykerSarah M. OUTREACH REPRESENTATIVE) Eyes Eye Exam: Pupils Equal (NoamSarah M. OUTREACH REPRESENTATIVE) Ears & Nose Ears & Nose Exam: Nasal Mucosa [place] (StrykerSarah M. OUTREACH REPRESENTATIVE) Throat Throat Exam: Oral Mucosa [place] & Moist (StrykerSarah M. OUTREACH REPRESENTATIVE) Neck Neck Exam: Neck Supple, Trachea Midline (StrykerLenoreSarah M. OUTREACH REPRESENTATIVE) Pulmonary Resp Exam: Clear Bilaterally, Rhonchi (rhonchi resolved) (StrykerSarah M. OUTREACH REPRESENTATIVE ) Cardiology CV Exam: Regular (StrykerSarah M. OUTREACH REPRESENTATIVE) Gastrointestinal/Abdomen GI Exam: Soft, Non-Tender, Bowel Sounds Present, Non-Distended (StrykerLenoreSarah M. OUTREACH REPRESENTATIVE) Musculoskeletal MS Exam: Joints Intact (StrykerSarah M. OUTREACH REPRESENTATIVE) Integumentary Skin Exam: Warm, Dry (StrykerLenoreSarah M. OUTREACH REPRESENTATIVE) Extremeties Extremities Exam: No Edema, Pedal Pulses Palpable (StrykerLenoreSarah M. OUTREACH REPRESENTATIVE) Neurologic Neuro Exam: Alert, Awake, Oriented, Speech Clear, Moving All Extremities, No Focal Deficits (NoamLenoreSarah M. OUTREACH REPRESENTATIVE) Psychiatric Psych Exam: Appropriate Responses (Sarah Santacruz) VTE Prophylaxis VTE Prophylaxis Meds: Lovenox (Sarah Santacruz) Assessment/Plan Problem List: (1) Left acetabular fracture (2) Closed fracture of left superior pubic ramus (3) Fall (4) HTN (hypertension) (5) Tobacco abuse (6) Leukocytosis (7) Hyperlipidemia (8) Hyperglycemia (9) CAD (coronary artery disease) (10) COPD (chronic obstructive pulmonary disease) (11) Hypoxia Assessment/Plan (1) Left acetabular fracture (2) Closed fracture of left superior pubic ramus (3) Fall (4) HTN (hypertension) (5) Tobacco abuse (6) Leukocytosis (7) Hyperlipidemia (8) Hyperglycemia (9) CAD (coronary artery disease) (10) COPD (chronic obstructive pulmonary disease) (11) Hypoxia Assessment/Plan Vital signs reviewed, O2 sat ranging between 92 and 96%, decreased O2 per nasal cannula at 2 L, monitor sats to maintain 92 or greater -Appreciate orthopedic input, nonsurgical management, continue to monitor with physical therapy, pain management, Patient taking very minimal pain meds but states increased pain for a brief period of time when up with rehabilitation Activity up in chair, continuing with DuoNeb treatments today Leukocytosis, Probable secondary to steroids, steroids change to by mouth Continue to monitor while in hospital COPD, with acute exacerbation last night. Hypoxic, but now resolved, currently using oxygen per nasal cannula at 4 L. decreased to 2 L this a.m. Walked test per respiratory, decreased oxygen to 2 L and decreased to room air if possible Monitor O2 sats, senna spirometry Continues with tobacco use -DuoNeb's as needed for wheezing Nicotine patch , wean O2 and monitor for any acute shortness of breath Coronary artery disease, prior history of CABG History of coronary artery stents, no acute chest pain medical management Pacemaker SCDs and Lovenox 40 mg subcutaneous daily for DVT prophylaxis Case management working on rehabilitation SNF, planned for [facility], bed available today, pending respiratory O2 sat 92 or greater Anxious over discharge, states he is leaving today D/W pt D/W Dr. Shah, seen on her behalf (Sarah Santacruz) Assessment/Plan patient seen and examined anxious to go to rehab requiring oxygen, 86% on walk test continue to wean at rehab ok to d/c to [facility] pending BM Rectal suppository was given plan of care discussed with patient, nursing staff, family at bedside and case management d/w Sarah CLARK (Nayely Shah MD) Problem Qualifiers (1) Left acetabular fracture: Qualified Code: S32.402A - Closed nondisplaced fracture of left acetabulum, unspecified portion of acetabulum, initial encounter (2) Closed fracture of left superior pubic ramus: Qualified Code: S32.512A - Closed fracture of left superior pubic ramus, initial encounter (3) Fall: Qualified Code: W19.XXXA - Fall, initial encounter (4) HTN (hypertension): Qualified Code: I10 - Essential hypertension (5) Leukocytosis: Qualified Code: D72.829 - Leukocytosis, unspecified type (6) Hyperlipidemia: Qualified Code: E78.5 - Hyperlipidemia, unspecified hyperlipidemia type (7) CAD (coronary artery disease): Qualified Code: I25.10 - Coronary artery disease involving [place] coronary artery of [place] heart without angina pectoris (8) COPD (chronic obstructive pulmonary disease): Qualified Code: J44.1 - Chronic obstructive pulmonary disease with acute exacerbation Sarah Santacruz Nov 19, 2016 10:29 Nayely Shah MD Nov 19, 2016 13:17
[2016-11-19 12:00] VITALS: BP 141/66; PULSE 61; RESP 18; TEMP 97.7; O2SAT 93
[2016-11-19] MEDS ORDERED: PRED10 PO (12:09)
[2016-11-19] MEDS ORDERED: guaiFENesin ER PO (12:09)
[2016-11-19] MEDS ORDERED: IPRASOL INH (12:52)
[2016-11-19] MEDS: cefTRIAXone INJ 1,000 MG in SODIUM CHLORIDE 0.9% INJ 100 ML IV SCH (15:15)
--- NOTE | 2016-11-19 17:46 | HHI.PR ---
Subjective Remarks 76 YOWM with COPD exac, Acetabular fracture, Bipolar Breathing betetr at BS Wheezing improved No new complaint Objective Vital Signs Vital Signs Date Time Temp Pulse Resp B/P Pulse Ox O2 Delivery O2 Flow Rate FiO2 11/19/16 12:23 4.00 11/19/16 12:00 97.7 61 18 141/66 93 11/19/16 10:00 92 Nasal Cannula 4.00 11/19/16 09:42 94 Nasal Cannula 4.00 11/19/16 08:00 97.5 68 17 135/69 94 11/19/16 05:30 95 Nasal Cannula 4.00 11/19/16 05:14 98 Nasal Cannula 4.00 11/19/16 03:30 97.0 57 17 132/63 96 11/18/16 23:05 97.2 58 18 146/65 95 11/18/16 20:15 97.0 65 17 128/64 96 11/18/16 20:00 96 4.00 I/O 11/18/16 11/18/16 11/18/16 11/19/16 11/19/16 11/19/16 06:59 14:59 22:59 06:59 14:59 22:59 Intake Total 480 ml 1040 ml 480 ml 600 ml Output Total 500 ml 700 ml 600 ml Balance -20 ml 340 ml -120 ml 600 ml Intake Oral 480 ml 1040 ml 480 ml 600 ml Output Urine Total 500 ml 700 ml 600 ml Stool Total 0 ml # Voids 2 3 # Bowel Movements 0 0 1 1 Result Diagram: 11/19/1661811/19/16618 Objective Remarks GENERAL: Elderly male ,NAD SKIN: Warm and dry. HEAD: Normocephalic. EYES: No scleral icterus. No injection or drainage. NECK: Supple, trachea midline. No JVD or lymphadenopathy. CARDIOVASCULAR: Regular rate and rhythm without murmurs, gallops, or rubs. RESPIRATORY: Breath sounds equal bilaterally. No accessory muscle use. GASTROINTESTINAL: Abdomen soft, non-tender, nondistended. MUSCULOSKELETAL: No cyanosis, or edema. BACK: Nontender without obvious deformity. No CVA tenderness. A/P Assessment and Plan COPD with exac, improved Nicotine use Acetabular fracture Bipolar disorder CAD,S/P CABG PLAN: PO Steroids Aerosol nebs Supplement 02 DC plans underway he will FU with Juancarlos Mcgrath MD Nov 19, 2016 17:46
--- NOTE | 2016-11-20 18:34 | HHI.DS ---
Discharge Summary Admission Date Nov 18, 2016 at 15:03 Discharge Date: Nov 19, 2016 Admitting Diagnosis fracure of left acetabulum (1) Fall Diagnosis: Principal (2) Left acetabular fracture Diagnosis: Principal (3) Closed fracture of left superior pubic ramus Diagnosis: Principal (4) HTN (hypertension) Diagnosis: Secondary (5) Tobacco abuse Diagnosis: Secondary (6) Hyperlipidemia Diagnosis: Secondary (7) CAD (coronary artery disease) Diagnosis: Secondary (8) COPD (chronic obstructive pulmonary disease) Diagnosis: Secondary (9) Hyperglycemia Diagnosis: Secondary (10) Leukocytosis Diagnosis: Secondary Brief History This was a pleasant 76-year-old male with significant past medical history coronary artery disease, COPD, hypertension, hyperlipidemia, pacemaker. Patient presented to the emergency room for evaluation of fall. Patient indicated that he tripped over a chair and fell, twisted right foot and landed on left hip. He did hit his head but did not lose any consciousness. Denied any neck pain or back pain. His called a nephew who attempted to get the patient to stand but he was not able to bear weight. Patient complained of a left groin and left lateral hip pain. In the emergency room, patient was evaluated. Imaging studies were completed that showed mildly displaced fracture of left acetabulum. Orthopedic was contacted and CT was ordered. CT show minimally displaced fractures of the inferior pubic ramus on the left and at the junction of the superior pubic ramus with anterior acetabulum. Last Impressions Lower Extremity CT 11/15/16 0000 Signed Impressions: Service Date/Time: Tuesday, November 15, 2016 18:41 - CONCLUSION: 1. Minimally displaced fractures of the inferior pubic ramus on the left and at the junction of the superior pubic ramus with anterior acetabulum. Daniel De La Cruz MD Hip and Pelvis X-Ray 11/15/16 0000 Signed Impressions: Service Date/Time: Tuesday, November 15, 2016 17:17 - CONCLUSION: Mildly displaced fracture left acetabulum. Daniel De La Cruz MD Head CT 11/15/16 0000 Signed Impressions: Service Date/Time: Tuesday, November 15, 2016 17:10 - CONCLUSION: No acute intracranial disease. Daniel De La Cruz MD Femur X-Ray 11/15/16 0000 Signed Impressions: Service Date/Time: Tuesday, November 15, 2016 17:54 - CONCLUSION: Left acetabular fracture. MD Dr. Heraclio Rojas has evaluated patient, at this time non-surgical management is recommended. Physical therapy had been ordered. Patient was complaining of pain to both groins, has some mild numbness tingling to the left leg but otherwise has intact sensation at this time. Able to dorsiflex both feet. He was anxious to go home, not looking forward to going to a rehabilitation if needed. Patient did have history of COPD, he's not oxygen dependent. He continued to smoke. Denied any recent chest pain, chronically short of breath, no fever, no chills. His veneer redrier is . Patient was admitted for further evaluation and treatment CBC/BMP: 11/19/16 0619 11/19/16 0619 Significant Findings Laboratory Tests Test 11/18/16 11/19/16 06:32 06:19 White Blood Count 20.7 TH/MM3 18.6 TH/MM3 (4.0-11.0) (4.0-11.0) Red Blood Count 3.99 MIL/MM3 3.94 MIL/MM3 (4.50-5.90) (4.50-5.90) Hemoglobin 12.8 GM/DL 12.8 GM/DL (13.0-17.0) (13.0-17.0) Hematocrit 37.1 % 36.7 % (39.0-51.0) (39.0-51.0) Neutrophils (%) (Auto) 93.6 % 85.6 % (16.0-70.0) (16.0-70.0) Lymphocytes (%) (Auto) 3.3 % 7.8 % (9.0-44.0) (9.0-44.0) Neutrophils # (Auto) 19.3 TH/MM3 15.9 TH/MM3 (1.8-7.7) (1.8-7.7) Lymphocytes # (Auto) 0.7 TH/MM3 (1.0-4.8) Blood Urea Nitrogen 24 MG/DL (7-18) 25 MG/DL (7-18) Random Glucose 213 MG/DL 133 MG/DL (74-106) (74-106) Monocytes # (Auto) 1.2 TH/MM3 (0-0.9) Imaging Last Impressions Chest X-Ray 11/16/16 Signed Impressions: Service Date/Time: Wednesday, November 16, 2016 20:26 - CONCLUSION: Bibasilar atelectasis. Daniel De La Cruz MD Lower Extremity CT 11/15/16 Signed Impressions: Service Date/Time: Tuesday, November 15, 2016 18:41 - CONCLUSION: 1. Minimally displaced fractures of the inferior pubic ramus on the left and at the junction of the superior pubic ramus with anterior acetabulum. Daniel De La Cruz MD Hip and Pelvis X-Ray 11/15/16 Signed Impressions: Service Date/Time: Tuesday, November 15, 2016 17:17 - CONCLUSION: Mildly displaced fracture left acetabulum. Daniel De La Cruz MD Head CT 11/15/16 Signed Impressions: Service Date/Time: Tuesday, November 15, 2016 17:10 - CONCLUSION: No acute intracranial disease. Daniel De La Cruz MD Femur X-Ray 11/15/16 Signed Impressions: Service Date/Time: Tuesday, November 15, 2016 17:54 - CONCLUSION: Left acetabular fracture. Daniel De La Cruz MD PE at Discharge General Appearance: Well Developed, Well Nourished, No Acute Distress, Comfortable Eyes Eye Exam: Pupils Equal Ears & Nose Ears & Nose Exam: Nasal Mucosa [place] Throat Throat Exam: Oral Mucosa [employer] [place] & Moist Neck Neck Exam: Neck Supple, Trachea Midline Pulmonary Resp Exam: Clear Bilaterally, Rhonchi (rhonchi resolved) CV Exam: Regular Gastrointestinal/Abdomen GI Exam: Soft, Non-Tender, Bowel Sounds Present, Non-Distended Musculoskeletal MS Exam: Joints Intact Integumentary Skin Exam: Warm, Dry Extremeties Extremities Exam: No Edema, Pedal Pulses Palpable Neurologic Neuro Exam: Alert, Awake, Oriented, Speech Clear, Moving All Extremities, No Focal Deficits Psychiatric Psych Exam: Appropriate Responses VTE Prophylaxis VTE Prophylaxis Meds: [facility] Hospital Course These are the diagnoses that were used to treat this patient during this brief hospital stay (1) Left acetabular fracture (2) Closed fracture of left superior pubic ramus (3) Fall (4) HTN (hypertension) (5) Tobacco abuse (6) Leukocytosis (7) Hyperlipidemia (8) Hyperglycemia (9) CAD (coronary artery disease) (10) COPD (chronic obstructive pulmonary disease) (11) Hypoxia Vital signs reviewed, O2 sat ranging between 92 and 96%, decreased O2 per nasal cannula at 2 L, monitor sats to maintain 92 or greater Afebrile, heart and respiratory rate controlled -Appreciate orthopedic input, nonsurgical management, continue to monitor with physical therapy, pain management, Patient taking very minimal pain meds but states increased pain for a brief period of time when up with rehabilitation Activity up in chair, continuing with DuoNeb treatments as needed Leukocytosis, Probable secondary to steroids, steroids change to by mouth Continue to monitor while in hospital COPD, with acute exacerbation last night. Hypoxic, but now resolved, currently using oxygen per nasal cannula at 4 L. decreased to 2 L Walked test per respiratory, decreased oxygen to 2 L and decreased pending walk test Monitor O2 sats, senna spirometry Continues with tobacco use -DuoNeb's as needed for wheezing Nicotine patch , wean O2 and monitor for any acute shortness of breath Coronary artery disease, prior history of CABG History of coronary artery stents, no acute chest pain medical management Pacemaker intact without any issues during this hospital stay SCDs and Lovenox 40 mg subcutaneous daily for DVT prophylaxis Case management working on rehabilitation SNF, planned for [facility], bed available today, pending respiratory O2 sat 92 or greater Anxious over discharge, states he is leaving today. patient seen and examined per Dr. paez anxious to go to rehab, will continue to be monitored at his oxygen levels and received O2 during his rehabilitation phase requiring oxygen, 86% on walk test continue to wean at rehab ok to d/c to [facility] pending BM Rectal suppository was given Pt Condition on Discharge: Stable Discharge Disposition: Discharge to SNF Discharge Instructions DIET: Follow Instructions for: Heart Healthy Diet Activities you can perform: Weight Bearing as Rosita Follow up Referrals: Orthopedics - 11/30/16 [facility] with Benedicto Pulliam MD New Medications: Oxycodone-Acetaminophen (Percocet) 5-325 mg Tab 1 TAB PO Q4H PRN PAIN #60 Ref 0 TAB Prednisone (Prednisone) 10 Mg Tab 10 MG PO TID 1 tab tid X 3 days 1 tab BID X 3 day, then 1 tab daily X 3 days, then DC Dyspnea #20 Ref 0 TAB Walker/Adult/Folding (Walker/Adult/Folding) 1 Mis Mis 1 EA .ROUTE DIRECTED #1 Ref 0 EA Ipratropium-Albuterol Neb (Duoneb) 0.5-2.5 Mg/3 Ml Neb 1 AMPULE INH Q6HR NEB Shortness of Breath Days 7 ML ([guaiFENesin ER]) 600 MG TABCR 600 MG PO BID Cough Days 30 TAB.SR Continued Medications: Albuterol 18 GM Inh (Ventolin Hfa 18 GM Inh) 90 Mcg/Act Aer 2 PUFF INH Q4-6H PRN SHORTNESS OF BREATH #1 Ref 0 INHALER Amlodipine (Amlodipine) 5 Mg Tab 5 MG PO DAILY Blood Pressure Management #30 Ref [address] (Aspir-81) 81 Mg Tabdr 81 MG PO DAILY Enalapril (Enalapril) 20 Mg Tab 20 MG PO DAILY #30 Ref 0 TAB Metoprolol Tartrate (Metoprolol Tartrate) 25 Mg Tab 25 MG PO DAILY #60 Ref 0 TAB Multiple Vitamins W/ Minerals (Multi For Him 50+) 1 Tab Tab 0.5 TAB PO EVERY OTHER DAY Omeprazole (Omeprazole) 20 Mg Tab 20 MG PO DAILY #30 Ref 0 TAB Discontinued Medications: Chromium Picolinate (Chromium Picolinate) 200 Mcg Cap 200 MG PO DAILY Cinnamon (Hm Cinnamon) 500 Mg Cap 300 MG PO DAILY Oxycodone-Acetaminophen (Percocet) 5-325 mg Tab 1-2 TAB PO Q6H PRN PAIN #30 Ref 0 TAB Sarah Santacruz Nov 20, 2016 18:33
== END 2016-11-19 16:27 | DRG 536 ==
LOC: NEPC 16:37 → NEDA 20:12 → N06B 21:53 → OBSVTOIN 11-18 15:03
PROVIDERS: ADMIT Internal Medicine; ATTEND Internal Medicine
DX: S32.402A Unspecified fracture of left acetabulum, initial encounter for closed fracture (principal); S32.512A Fracture of superior rim of left pubis, initial encounter for closed fracture; J44.1 Chronic obstructive pulmonary disease with (acute) exacerbation; J98.11 Atelectasis; E78.5 Hyperlipidemia, unspecified; I10 Essential (primary) hypertension; F17.210 Nicotine dependence, cigarettes, uncomplicated; F31.9 Bipolar disorder, unspecified; I25.10 Atherosclerotic heart disease of native coronary artery without angina pectoris; M81.0 Age-related osteoporosis without current pathological fracture; R09.02 Hypoxemia; R73.9 Hyperglycemia, unspecified; W18.09XA Striking against other object with subsequent fall, initial encounter; T38.0X5A Adverse effect of glucocorticoids and synthetic analogues, initial encounter; Z85.51 Personal history of malignant neoplasm of bladder; Z95.0 Presence of cardiac pacemaker; Z95.1 Presence of aortocoronary bypass graft; Z95.5 Presence of coronary angioplasty implant and graft; Y92.018 Other place in single-family (private) house as the place of occurrence of the external cause
CPT/HCPCS: 36600; 70450; 71010; 73502; 73552; 73700; 80048; 82805; 83036; 85025; 85027; 87169; 93005; 94150; 94620; 94640; 94664; G8987-GO; G8988-GO; J0696; J1170; J1650; J1885; J2405; J2930; J7512

== ENCOUNTER 2017-09-03 05:50 | Day surgery (SDC) | payer MEDICARE ==
[~2017-09-03] VITALS: Ht 172.7 cm; Wt 82.9 kg
[~2017-09-03 05:50] MED LIST changes: -CHRO200C PO; -CINN500C12 PO; +IPRASOL INH; -OMEP20TA PO; +OMEP20TA93 PO; -PERC5TAB12 PO; +PRED10 PO; +guaiFENesin ER PO
[2017-09-03 06:06] VITALS: BP 123/70; PULSE 78; RESP 18; O2SAT 96
[2017-09-03] MEDS ORDERED: POVIDONE IODINE 5% (ANTISEPSIS KIT) 4 APPLICATIONS EACH NARE PRN (06:15)
[2017-09-03] MEDS ORDERED: CHLORHEXIDINE GLUCONATE 2 % 1 PACK (2 CLOTHS) TOPICAL PRN (06:15)
[2017-09-03] MEDS ORDERED: INSULIN HUMAN REGULAR 1,000 UNITS/10 ML VIAL SQ PRN (06:15)
[2017-09-03] MEDS ORDERED: CHLORHEXIDINE GLUCONATE 2 % 1 PACK (2 CLOTHS) TOPICAL SCH (06:15)
[2017-09-03] MEDS ORDERED: METOPROLOL TARTRATE 25 MG TAB PO PRN (06:15)
[2017-09-03] MEDS ORDERED: NS 1000 ML IV SCH (06:15)
[2017-09-03] MEDS ORDERED: LACTATED RINGER'S 1000 ML IV PRN (06:15)
[2017-09-03] MEDS ORDERED: SODIUM CHLORID 0.9% 500 ML IV PRN (06:15)
[2017-09-03] MEDS ORDERED: MUPIROCIN 2% OINT 1 APPLIC/GM SYR NASAL SCH (06:15)
[2017-09-03] MEDS ORDERED: ceFAZolin 2 GM PREMIX 50 ML IV SCH (06:15)
[2017-09-03] MEDS ORDERED: POVIDONE IODINE 5% (ANTISEPSIS KIT) 4 APPLICATIONS EACH NARE SCH (06:15)
[2017-09-03 06:42] LABS: AUTOMATED NEUTROPHIL # 7.8 TH/MM3 (1.8-7.7); BASOPHIL # 0.2 TH/MM3 (0-0.2); BASOPHIL % 1.5 % (0.0-2.0); EOSINOPHIL # 0.5 TH/MM3 (0-0.4); HEMATOCRIT 46.7 % (39.0-51.0); HEMOGLOBIN 15.9 GM/DL (13.0-17.0); LYMPH % 18.2 % (9.0-44.0); LYMPHOCYTE # 2.1 TH/MM3 (1.0-4.8); MEAN CELL VOLUME 95.4 FL (80.0-100.0); MEAN CORPUSCULAR HEMOGLOBIN 32.4 PG (27.0-34.0); MEAN PLATELET VOLUME 8.3 FL (7.0-11.0); MONO % 8.8 % (0.0-8.0); NEUT % 67.5 % (16.0-70.0); PLATELET COUNT 259 TH/MM3 (150-450); RED BLOOD COUNT 4.89 MIL/MM3 (4.50-5.90); RED CELL DISTRIBUTION WIDTH 14.3 % (11.6-17.2); WHITE BLOOD COUNT 11.6 TH/MM3 (4.0-11.0)
[2017-09-03 06:53] LABS: PROTHROMBIN TIME - PATIENT 10.5 SEC (9.8-11.6)
[2017-09-03 06:58] LABS: BICARBONATE 29.7 MEQ/L (21.0-32.0); CALCIUM 9.2 MG/DL (8.5-10.1); CREATININE 0.82 MG/DL (0.60-1.30)
[2017-09-03] MEDS ORDERED: VANCOMYCIN 1,000 MG/NS 250 ML IV SCH ×2 (07:45)
[2017-09-03] MEDS ORDERED: ROSU10 PO (07:50)
[2017-09-03] MEDS ORDERED: TIOT1AER2 INH (07:50)
[2017-09-03] MEDS ORDERED: LIDOCAINE HCL 2% 20 ML VIAL ONE ×3 (08:16→10:03)
[2017-09-03] MEDS ORDERED: VANCOMYCIN 500 MG VIAL ONE ×2 (08:16→09:54)
[2017-09-03] MEDS ORDERED: MIDAZOLAM HCL 2 MG/2 ML VIAL ONE (09:18)
[2017-09-03] MEDS ORDERED: ONDANSETRON HCL 4 MG/2 ML VIAL ONE (09:39)
[2017-09-03] MEDS ORDERED: MIDAZOLAM HCL 5 MG/5 ML VIAL ONE (09:52)
--- NOTE | 2017-09-03 10:56 | CATHPROC ---
[employer] HIS Report Study Information Study Number Admission Scheduled Start Study Start [id number] Sep 03 2017 5:50AM 09/03/2017 Sep 03 2017 7:00AM [place] Service Cardiac Pacer/ICD Admit Source Facility Department Other [facility] - Agricultural Specialist Physician and Clinical Staff Initial Derik Jo Survey Technician Cayla Reaves,LAURA Survey Technician Dylan Rodriguez RN Other Anesthesia, CERTIFIED JUVENILE PROBATION OFFICER Recorder Claire Mccrary BSN Scrub Batt, Dale,(R) Equipment Time Party Coordinator Description Size Mfg Part Number Used/Scraped DERMABOND, ADHESIVE SKIN [id number] 08:21 CORDIS/PACER * Used GLUE MINI *[id number] DERMABOND, ADHESIVE SKIN [id number] 09:57 CORDIS/PACER * Used GLUE MINI *[id number] 08:38 MEDLINE INDUSTRIES DRAPE, IOBAN 2 [id number] 26cm x 20cm Used *[id number] 09:58 MEDLINE Vidyo DRAPE, IOBAN 2 6661EZ 26cm x 20cm Used *[id number] TP-1103 09:57 MEDLINE INDUSTRIES SUTURE, STRIP PLUS 1/2" * Used *[id number] TP-1103 08:21 MEDLINE INDUSTRIES SUTURE, STRIP PLUS 1/2" * Used *[id number] 08:21 MEDLINE PACER JAMES, LIMB * 2530 *[id number] Used 09:57 MEDLINE PACER JAMES, LIMB * 2530 *[id number] Used [id number] 08:21 MEDLINE PACER PACK, PACER CUSTOM * Used *[id number] 09:57 MEDLINE PACER PACK, PACER CUSTOM * Used *[id number] 08:35 Needle Sponge Count 2 2 Used 10:11 Needle Sponge Count 25 1 Used 08:35 Needle Sponge Count 3 33 Used 08:35 Needle Sponge Count 30 1 Used SUTURE, 2-0 VICRYL [CT1] ([id number]) SUTURE, 2-0 VICRYL [CT1] (PTV348R) [id number] 08:21 [employer] BLANKET,WARM AIR CCL * Used *[id number] 09:57 [employer] BLANKET,WARM AIR CCL * Used *[id number] 10:16 [employer]TA [employer] PACEMAKER, GRETA\\ REPLY DR VILLEDA [id number] Used [facility] PAD, ELECTROSURGICAL 09:57 * [id number] *[id number] Used SURGICAL GROUNDING ORANGE [facility] PAD, ELECTROSURGICAL 08:21 * [id number] *[id number] Used SURGICAL GROUNDING ORANGE [id number] 08:31 VITATRON MED[employer]ON[employer] PLASMABLADE, PEAD 3.0S * Used *[id number] 09:58 VITATRON MEDTRONIC PLASMABLADE, PEAD 3.0S * Used *[id number] Equipment Model, Serial, Lot Number and Expiration Data Description Model Number Serial Number Lot Number Expiration Date PACEMAKER, GRETA\\ REPLY [id number] 01-26-2019 Labs Hgb (g/dl) Hct (%) WBC (l/cumm) Platelets (thousands) 11.60-17.00 35.00-51.00 4.00-11.00 150.00-450.00 15.9 46.7 11.6 259 INR (PTT:PT) 0.90-1.10 1 Medication Medication Total Dose (Bolus/Oral) Medication Total Dosage/Unit FENTANYL 50 mcg VERSED 2 mg ZOFRAN 4 mg Medications (Bolus/Oral) Medication Time Given Dosage/Unit Administered By Reason ZOFRAN 09/03/2017 9:40:31 AM 4 mg Hesher, Cayla 4 mg ZOFRAN given in lab by Cayla Reaves RN via Central IV. Ordered by Derik Bolivar. VERSED 09/03/2017 9:58:40 AM 1 mg Hesher, Cayla 1 mg VERSED given in lab by Cayla Reaves RN via Peripheral IV. Ordered by Derik Bolivar. FENTANYL 09/03/2017 9:59:13 AM 25 mcg Hesher, Cayla 25 mcg FENTANYL given in lab by Cayla Reaves RN via Peripheral IV. Ordered by Derik Bolivar. VERSED 09/03/2017 10:19:40 AM 1 mg Hesher, Cayla 1 mg VERSED given in lab by Cayla Reaves RN via Peripheral IV. Ordered by Derik Bolivar. FENTANYL 09/03/2017 10:20:25 AM 25 mcg Hesher, Cayla 25 mcg FENTANYL given in lab by Cayla Reaves RN via Peripheral IV. Ordered by Derik Bolivar. Medication (Drip) Medication Time Given Dosage/Unit Concentration/Unit Diluent (ml) Solution ANCEF 09/03/2017 8:13:50 AM 2 g 2 g ANCEF given in lab by GATITO Rodarte via Peripheral IV. Ordered by Derik Bolivar. IV Solutions 09/03/2017 8:10:07 AM 50 mL (IV) NaCl .9 IV Solutions given in lab by Cayla Reaves RN via Peripheral IV. Pump/Drip Flow using NaCl .9. at k vo IV Solutions 09/03/2017 8:10:21 AM 50 mL (IV) NaCl .9 IV Solutions given in lab by Cayla Reaves RN in Right Antecubital via Peripheral IV. Pump/Drip Rene w using NaCl .9. VANCOMYCIN DRIP 09/03/2017 8:13:44 AM 1 g 1 g VANCOMYCIN DRIP given in lab by GATITO Rodarte via Peripheral IV. Ordered by Derik Bolivar. Initial Case Assessment Cardiovascular HR Rhythm NIBP Chest Pain 70 paced 141/66 0 Edema Present Skin color Skin None Normal Warm Dry Circulatory - Lower Extremities Color Lower Right Color Lower Left Normal Normal Neurological State Oriented to time-place- Alert Moves all extremities person Respiration - General Respiration Rate SpO2 (%) (B/min) 16 97 Initial Case Assessment Cardiovascular HR Rhythm NIBP 54 sr 125/59 Edema Present Skin color Skin None Normal Warm Dry Circulatory - Lower Extremities Color Lower Right Color Lower Left Normal Normal Neurological State Oriented to time-place- Alert Moves all extremities person Respiration - General Respiration Rate SpO2 (%) O2 (lpm) (B/min) 14 96 2 Chronological Log Time Study Chronological Log 8:05:19 Patient arrived via Bed. 8:05:23 Patient Name, D.O.B, / Armband Verified By R.N. 8:06:26 Consent signed by the physician and the patient and verified by the Agricultural Specialist staff. 8:10:07 IV Solutions given in lab by Cayla Reaves RN via Peripheral IV. Pump/Drip Flow using NaC l .9. at kvo 8:10:21 IV Solutions given in lab by Cayla Reaves RN in Right Antecubital via Peripheral IV. Pum p/Drip Flow using NaCl .9. 8:11:38 Patient has been NPO for More than 6Hrs. 8:11:41 Skin Breakdown- skin biopsy site to back per patient 8:12:33 Anesthesia at bedside. Assumes care of patient. 8:12:34 Anesthesia at bedside. Assumes care of patient. 8:12:36 Patient Warmer Placed on the Table. 8:12:40 Disposable Defibrillator Pads Placed On Patient. 8:12:43 Katlyn Prominences Protected 8:12:48 A # 20 IV was noted in the Antecubital (left). Grade = 0 8:12:57 A # 20 IV was noted in the Antecubital (right). Grade = 0 8:13:44 1 g VANCOMYCIN DRIP given in lab by Anesthesia, CERTIFIED JUVENILE PROBATION OFFICER via Peripheral IV. Ordered by Kyara Bolivar 8:13:50 2 g ANCEF given in lab by Anesthesia, CERTIFIED JUVENILE PROBATION OFFICER via Peripheral IV. Ordered by Derik Bolivar. 8:14:20 History and physical on the chart or being dictated. 8:14:23 Bovie ground pad applied to: right thigh 8:14:32 2% CHLORHEXIDINE GLUCONATE WASH AND NASAL SWIPE DONE PRIOR TO PROCEDURE. 8:15:01 Table restraints applied according to hospital policy Assessment: Initial Case, HR=70 BPM, Rhythm=paced, VGDM=234/66 mmhg, Chest Pain=0, Edema=None, Color=Normal, Skin = Warm, Dry Lower Right Extremities: Color=Normal 8:24:26 Lower Left Extremities: Color=Normal Neurological: State=Alert, Ox3, BRODERICK Respiration: Resp=16 B/min, SpO2=97 % 8:24:49 Dr Coyle at bedside for LMA placement by anesthesia 8:28:11 Bilateral Upper Chest Prepped Times Two; patient draped after 3 min dry time 8:30:46 Reference ECG taken First Sponge And Instrument Count Done by Yusef Gomez, RT(R). 8:32:00 Hypo's: 2, Sponges: 30, Bovie/scratch: 3 Sutures: 10, Blades: 2, Instruments: 26, Syveck Patches: 0 8:33:27 paged 8:36:17 Ioban applied to left chest Dr Bolivar in emergency; reports he will be available in approximately 1 hr; patient woke up and ext ubated, will be 8:55:23 brought back to DOCU; Dr Bolivar to call when he would like patient brought back 8:56:20 Defibrillator and ground pads removed. Skin intact. 9:40:31 4 mg ZOFRAN given in lab by Cayla Reaves RN via Central IV. Ordered by Derik Bolivar. 9:45:33 Patient arrived via Bed. 9:45:37 Patient Name, D.O.B, / Armband Verified By R.N. 9:45:43 Consent signed by the physician and the patient and verified by the Agricultural Specialist staff. 9:48:49 Pre-op and post- op instructions given; patient acknowledges understanding of instructions. 9:48:53 Patient has been NPO for More than 6Hrs. 9:49:49 Disposable Defibrillator Pads Placed On Patient. 9:49:53 Katlyn Prominences Protected 9:52:46 Bovie ground pad applied to: right thigh Vitals capture started with the following parameters, Patient=Adult, Interval=5 min, Initial Pre uojpb=715 mmHg, 9:55:51 Deflation Rate=5 mmHg, Cuff placed on Right Arm 9:56:15 Reference ECG taken 9:56:32 HR=63 bpm, ACCR=607/59 mmhg, SpO2=94.0 %, Resp=16 B/min, Pain=0, [place]=10, [place]=2 9:58:15 MD arrived. 9:58:40 1 mg VERSED given in lab by Cayla Reaves, LAURA via Peripheral IV. Ordered by Derik Bolivar. 9:59:13 25 mcg FENTANYL given in lab by Cayla Reaves, LAURA via Peripheral IV. Ordered by Derik Bolivar. Assessment: Initial Case, HR=54 BPM, Rhythm=sr, GIBH=740/59 mmhg, Edema=None, Color=Normal, Ski n = Warm, Dry Lower Right Extremities: Color=Normal 10:00:11 Lower Left Extremities: Color=Normal Neurological: State=Alert, Ox3, [place] Respiration: Resp=14 B/min, SpO2=96 %, O2=2 lpm 10:01:33 HR=72 bpm, RZSL=028/56 mmhg, SpO2=93.0 %, Resp=14 B/min 10:02:12 Please see previous documentation for all other pre-procedure information 10:02:17 Bilateral Upper Chest Prepped Times Two; patient draped after 3 min dry time 10:06:30 HR=54 bpm, UQMN=306/61 mmhg, SpO2=93.0 %, Resp=12 B/min 10:08:19 Ioban applied First Sponge And Instrument Count Done by Yusef Gomez RT(R). 10:08:30 Hypo's: 2, Sponges: 25, Bovie/scratch: 3 Sutures: 10, Blades: 2, Instruments: 26, Syveck Patches: ~SYVECK PATCH~ 10:11:33 HR=62 bpm, BAFU=816/66 mmhg, SpO2=97.0 %, Resp=14 B/min Time Out. Correct patient, procedure, procedure equipment, site and side verified with physicia n present. Time 10:12:04 concurred by MD, individual staff and CERTIFIED JUVENILE PROBATION OFFICER. 10:12:18 Case Start 10:15:03 Surgical Incision Made. 10:16:34 HR=60 bpm, VWYY=356/61 mmhg, SpO2=98.0 %, Resp=12 B/min 10:17:22 A pocket was created at the L Upper Chest. 10:19:19 A device was explanted; device is going back to company 10:19:40 1 mg VERSED given in lab by Cayla Reaves RN via Peripheral IV. Ordered by Derik Bolivar. 10:20:25 25 mcg FENTANYL given in lab by Cayla Reaves, LAURA via Peripheral IV. Ordered by Derik Bolivar . 10:20:30 A PACEMAKER, GRETA\\ REPLY DDDR was connected and placed in the pocket. 10:21:31 HR=36 bpm, OTIA=450/55 mmhg, SpO2=90 % 10:23:47 Pocket flushed with antibiotic solution 10:26:19 The pocket is being closed. Second Sponge And Instrument Count Done by Yusef Gomez RT(R). 10:26:30 Hypo's: 2, Sponges: 25, Bovie/scratch: 3 Sutures: 10, Blades: 2, Instruments: 26, Syveck Patches: ~SYVECK PATCH~ 10:26:33 HR=74 bpm, DQDC=292/60 mmhg, SpO2=93.0 % 10:31:34 HR=65 bpm, LMAF=858/60 mmhg, SpO2=98.0 % 10:34:04 The pocket was closed. final Sponge And Instrument Count Done by Yusef Gomez RT(R). 10:34:24 Hypo's: 2, Sponges: 25, Bovie/scratch: 3 Sutures: 10, Blades: 2, Instruments: 26, Syveck Patches: ~SYVECK PATCH~ 10:36:33 HR=26 bpm, MZAD=865/62 mmhg, SpO2=98.0 % 10:37:10 Implant Procedure was performed. 10:37:14 A PPM Removal . (Dual) 10:37:27 A PPM Implant . (Dual) 10:37:35 Bedside Report will be given. 10:39:16 Steri-strips and a sterile dressing applied to site. 10:41:34 HR=43 bpm, UDIJ=814/62 mmhg, SpO2=98.0 %, Resp=12 B/min 10:41:48 Case End 10:42:42 No case complications noted. 10:42:43 Cine recording checked. 10:42:50 Implantable Device card placed in patient's chart. 10:46:37 AHAB=696/57 mmhg, SpO2=97.0 % 10:49:53 Defibrillator and ground pads removed. Skin intact. 10:52:58 [facility] - Contrast Media Used In Study Contrast Total Opened (mL) Total Used (mL) Total Wasted (mL) Omnipaque 0 0 0 End Study - Radiation Exposure Fluoro Time (minutes) 0.1 End Study - Patient Disposition Complications Transferred To Interventional Outcome No Agricultural Specialist Holding successful
[2017-09-03] MEDS ORDERED: PROPOFOL 200 MG/20 ML AMP IV ONE (12:00)
--- NOTE | 2017-09-03 19:51 | EKG ---
Date Performed: 09/03/2017 Time Performed: 06:51:28 PTAGE: 77 years EKG: Sinus rhythm with PVC(s). 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
== END 2017-09-03 14:30 | disposition home or self-care (01) ==
LOC: HDOC 05:50 → HDIC 05:50 → HDOC 14:30
PROVIDERS: ATTEND Nuclear Medicine Nuclear Cardiology
DX: Z45.010 Encounter for checking and testing of cardiac pacemaker pulse generator [battery] (principal); I49.5 Sick sinus syndrome; I48.0 Paroxysmal atrial fibrillation; I25.10 Atherosclerotic heart disease of native coronary artery without angina pectoris; I10 Essential (primary) hypertension; J44.9 Chronic obstructive pulmonary disease, unspecified; C67.9 Malignant neoplasm of bladder, unspecified; E78.5 Hyperlipidemia, unspecified; Z79.01 Long term (current) use of anticoagulants; Z79.82 Long term (current) use of aspirin
CPT/HCPCS: 33228; 80048; 85025; 85610; 85730; 93005; 99152; 99153; C1785; J0690; J2250; J2405; J3010; J3370; J7050